=== PATIENT | male | born 1955 | race Caucasian/White ===

== ENCOUNTER → 2018-04-20 10:01 | Outpatient (CLI) | payer OTHER, MEDICAID, SELFPAY ==
[2018-04-20 10:22] LABS: Appearance Urine UA CLEAR; Bilirubin Urine UA NEGATIVE (NEGATIVE); Color Urine UA YELLOW; Glucose Urine UA NEGATIVE (Normal); Ketones Urine UA NEGATIVE (NEGATIVE); Leukocyte Esterase Urine UA NEGATIVE (NEGATIVE); Nitrite Urine UA Negative (Negative); Occult Blood Urine UA NEGATIVE (Negative); Protein Urine UA NEGATIVE (Negative); Specific Gravity Urine UA 1.025 (1.000-1.035); Urobilinogen Urine UA 0.2 E.U./dL (0.2)
[2018-04-20 10:50] LABS: Bacteria Urine Few (2-10); Culture Indicated Urine Cult Not Indicated; RBC Urine 0-1/HPF (0-5/HPF); Squamous Epithelial Cell Urine 0-1 /HPF; WBC Urine 1-5/HPF (0-5/HPF)
[2018-04-20 11:03] LABS: Add Manual Diff / Slide Review NO; Basophils Percent Auto 0.9 % (0-2); Eosinophils Percent Auto 2.2 % (2-4); Hematocrit 39.1 % (41-53); Hemoglobin 13.1 g/dL (13.5-17.5); Lymphocytes Percent Auto 24.2 % (25-40); Mean Corpuscular HGB Conc 33.5 % (30-36); Mean Corpuscular Hemoglobin 28.2 PG (26-34); Monocytes Percent Auto 10.5 % (3-14); Neutrophils Absolute Auto 3800 /uL (3000-5900); Neutrophils Percent Auto 62.2 % (50-75); Platelet Count 231 X10^3/uL (150-400); Red Blood Cell Count 4.66 X10^6/uL (4.5-5.9); Red Cell Distribution Width 14.8 % (11.6-14.8); White Blood Cell Count 6.1 X10^3/uL (4.5-11.0)
[2018-04-20 11:17] LABS: Hemoglobin A1C% w Est Avg Glu 5.5 % (4.0-6.0)
[2018-04-20 11:26] LABS: BUN Creatinine Ratio 27.5 (6-22); Blood Urea Nitrogen 22 mg/dL (9-20); Carbon Dioxide 25 mmol/L (22-32); Chloride 104 mmol/L (98-107); Estimated Glomerular Filt Rate > 60.0 mL/min (>60); Glucose 87 mg/dL (80-110); HEMOLYSIS < 15 (0-50); Sodium 139 mmol/L (137-145)
== END ==
PROVIDERS: PCP Emergency Medicine Emergency Medical Services; Visit Provider Orthopaedic Surgery
DX: Z01.818 Encounter for other preprocedural examination (principal); Z01.812 Encounter for preprocedural laboratory examination; N39.9 Disorder of urinary system, unspecified; R73.09 Other abnormal glucose
CPT/HCPCS: 36415; 80048; 81001; 83036; 85025; 93005; 93010

== ENCOUNTER → 2018-06-26 13:59 | Outpatient (CLI) | payer OTHER, MEDICAID, SELFPAY ==
[2018-06-26 14:09] LABS: Bacteria Urine None Seen; RBC Urine None Seen (0-5/HPF)
[2018-06-26 14:39] LABS: Add Manual Diff / Slide Review NO; Appearance Urine UA CLEAR; Basophils Percent Auto 0.8 % (0-2); Bilirubin Urine UA NEGATIVE (NEGATIVE); Color Urine UA YELLOW; Eosinophils Percent Auto 2.2 % (2-4); Glucose Urine UA NEGATIVE (Normal); Hematocrit 42.3 % (41-53); Hemoglobin 13.7 g/dL (13.5-17.5); Ketones Urine UA NEGATIVE (NEGATIVE); Leukocyte Esterase Urine UA TRACE (NEGATIVE); Mean Corpuscular HGB Conc 32.4 % (30-36); Mean Corpuscular Hemoglobin 27.2 PG (26-34); Mean Corpuscular Volume 83.9 fL (80-100); Monocytes Percent Auto 10.5 % (3-14); Neutrophils Absolute Auto 4000 /uL (3000-5900); Neutrophils Percent Auto 59.5 % (50-75); Nitrite Urine UA NEGATIVE (Negative); Occult Blood Urine UA NEGATIVE (Negative); Platelet Count 231 X10^3/uL (150-400); Protein Urine UA NEGATIVE (Negative); Red Blood Cell Count 5.04 X10^6/uL (4.5-5.9); Red Cell Distribution Width 14.5 % (11.6-14.8); Urobilinogen Urine UA 0.2 E.U./dL (0.2); White Blood Cell Count 6.7 X10^3/uL (4.5-11.0); pH Urine UA 6.5 (4.5-8.0)
[2018-06-26 14:47] LABS: WBC Urine 0-1/HPF (0-5/HPF)
[2018-06-26 14:48] LABS: Culture Indicated Urine Cult Not Indicated
[2018-06-26 14:54] LABS: BUN Creatinine Ratio 21.1 (6-22); Blood Urea Nitrogen 19 mg/dL (9-20); Calcium 8.9 mg/dL (8.4-10.2); Carbon Dioxide 26 mmol/L (22-32); Chloride 106 mmol/L (98-107); Estimated Glomerular Filt Rate > 60.0 mL/min (>60); Glucose 98 mg/dL (80-110); HEMOLYSIS < 15 (0-50); Hemoglobin A1C% w Est Avg Glu 5.7 % (4.0-6.0); Potassium 4.1 mmol/L (3.4-5.1); Sodium 143 mmol/L (137-145)
== END ==
PROVIDERS: PCP Emergency Medicine Emergency Medical Services; Visit Provider Orthopaedic Surgery
DX: Z01.818 Encounter for other preprocedural examination (principal); Z01.812 Encounter for preprocedural laboratory examination; N39.9 Disorder of urinary system, unspecified; R73.09 Other abnormal glucose
CPT/HCPCS: 36415; 80048; 81001; 83036; 85025; 93005

== ENCOUNTER 2018-07-11 08:08 | Inpatient (IN) | payer OTHER, MEDICAID, SELFPAY ==
[2018-07-04 10:47] VITALS: BMI 27.8
[2018-07-11] VITALS (12 sets, daily range): BP systolic 80–135; BP diastolic 57–94; PULSE 80–99; RESP 10–20; TEMP 36.3–37.1; O2SAT 90–98; BMI 27.8
--- NOTE | 2018-07-11 | DI.RAD.S_ITS ---
PROCEDURE: XR HIP W PEL IF DONE LT 2V INDICATIONS: TOTAL LEFT HIP TECHNIQUE: AP pelvis and lateral view of the left hip acquired. COMPARISON: [facility], CR, XR PELVIS WITH BILATERAL LATERAL HIPS, 04/18/2018, 8:13. [facility], CR, XR HIP W PEL IF DONE LT 2V, 07/11/2018, 11:48. FINDINGS: Bones: Patient is status post left hip arthroplasty, with hardware components in expected positions. The hip joint appears congruent. The visualized bony structures appear intact. Soft tissues: Overlying postoperative changes are noted. No suspicious soft tissue densities. IMPRESSION: Expected post surgical changes. Dictated by: Iva Duron M.D. on 07/11/2018 at 14:50 Approved by: Iva Duron M.D. on 07/11/2018 at 14:51
--- NOTE | 2018-07-11 08:43 | DI.RAD.S_ITS ---
PROCEDURE: XR HIP W PEL IF DONE LT 2V INDICATIONS: intra operative total left hip TECHNIQUE: 2 view(s) of the hip acquired. COMPARISON: [facility], CR, XR PELVIS WITH BILATERAL LATERAL HIPS, 04/18/2018, 8:13. FINDINGS: Intraoperative image obtained during the patient's left hip arthroplasty is present. A sizing device is seen within the proximal left femoral shaft. No displaced fractures or suspicious osseous lesions are evident. Expected postoperative changes within the overlying soft tissues are noted. IMPRESSION: Expected intraoperative findings related to left hip arthroplasty. Dictated by: Ming Hunt M.D. on 07/11/2018 at 12:21 Approved by: Ming Hunt M.D. on 07/11/2018 at 12:23
[2018-07-11] MEDS: LACTATED RINGERS 1,000 ML 42 ML IV ×2 (09:00→13:07)
[2018-07-11] MEDS: ACETAMINOPHEN 325 MG TABLET 975 MG PO ×2 (09:18→19:46)
[2018-07-11] MEDS: PREGABALIN 75 MG CAPSULE PO (09:19)
[2018-07-11] MEDS: CELECOXIB 200 MG CAPSULE PO (09:19)
[2018-07-11] MEDS: VANCOMYCIN 1,000 MG/200 ML FROZ.PIGGY 200 MG IV (10:02)
--- NOTE | 2018-07-11 10:44 | PM.PREOP ---
Pre-operative Note Interval Note Pre-op Check: Yes History & Physical Reviewed by Physician and Yes Exam Performed Changes: No
--- NOTE | 2018-07-11 10:48 | P.OP_ITS ---
Operative Date/Time/Diagnoses Date of procedure: 07/11/18 Time of procedure: 11:45 Pre-op diagnosis: Left hip osteoarthritis Post-op diagnosis: same Procedure & Clinicians Procedure: Left total hip arthroplasty Same procedure as scheduled: Yes Indications: The patient has had progressively worsening left hip pain with radiographic changes consistent with arthritis. Non-operative management has failed and the patient has requested total hip replacement. The risks, benefits and alternatives to surgery were discussed with the patient prior to proceeding. Risks discussed included, but were not limited to, failure to relieve pain, leg length discrepancy, dislocation, stiffness, infection, nerve damage, deep venous thrombosis, pulmonary embolism, stroke, coma, heart attack, permanent paralysis and , as well as the potential need for eventual revision of the prosthetic. Surgeon: Zonia Rutledge Trade Show Coordinator: Andreia Bergeron Anesthesia Type: General and Spinal Operative Notes Findings: Severe left hip osteoarthritis Closure Type: primary Specimen(s): none sent Implants & Drains: [employer]lde[employer]hew R3 58, anthology 11 standard offset, +0 40 neutral Applied: drain(s) Estimated Blood Loss (mL): 250 Blood products transfused: none Procedure in detail: The patient was seen in the pre-operative area, where the patient identified the left hip as the operative site and this was marked with my initials. The patient received pre-operative antibiotics and was taken to the operating room and placed on the operative table in the right lateral decubitus position after satisfactory anesthesia. A refinery operator vapor recovery unit out was performed. The left leg was prepared from the ankle to the iliac crest with ChloroPrep in the usual fashion and draped through sterile drapes. The hip was approached through an approximately 20 cm incision centered over the greater trochanter and curving gently posteriorly as it went proximally. This was carried sharply to the fascia marcelino, which was divided and retracted with a self retaining retractor. The trochanteric bursa was excised with care being taken to avoid the sciatic nerve, which was identified and protected throughout the case. The short external rotators were incised and the capsulomuscular flap was raised and tagged for later repair. The hip was dislocated, and a femoral neck osteotomy performed approximately 15 mm above the lesser trochanter. Retractors were placed around the femur. The canal was opened with a box cutting osteotome, followed by a T handled reamer and a lateralizing reamer. The chili pepper broach was then used, followed by sequential broaching until there was good stability of the broach in the femur. Retractors were placed to expose the acetabulum. The labrum and central soft tissues were removed. Reaming was performed initially going up in 2 mm increments, then 1 mm increments until good bite was obtained with an odd sized reamer. The cup 1 mm larger than the last reamer was then inserted using the appropriate anteversion guides. A trial neutral liner was placed. The broach was placed in the canal. A trial head and neck were then placed and the hip relocated and checked for leg length and stability. An intraoperative film confirmed the component position and no evidence of fracture. The patient was stable in the position of sleep, of squatting, and could be put through a range of motion with 45 degrees internal rotation without dislocation. At 90 degrees flexion, internal rotation to [60] was possible before dislocation. I also did a trial of -3 and attempted a trial of +4 which was too tight. Extended offset clearly appeared to be excessive and was not reducible. A standard offset was felt to be satisfactory and the appropriate components were opened, and the trials were removed. The acetabular liner was impacted into position. The final stem was then impacted into the prepared femoral canal. A brief Betadine soak was performed while trialing with head options. The hip was meticulously irrigated with normal saline. Finally the femoral head was impacted onto the stem. The acetabulum was cleared of all material and the hip relocated one final time. The capsulomuscular flap was then repaired to the greater trochanter though an awl hole using the tag sutures. The short external rotators were repaired with a black braided nylon. A deep drain was placed and brought out anteriorly. The fascia marcelino was closed with poly suture. The subcutaneous layer was closed with barbed sutures and SteriStrips. An Aquacel Ag dressing was applied and the patient was taken to recovery having tolerated the procedure well. Complications: none Condition: stable Disposition: Acute Care Plan for aftercare: The patient will be maintained on a standard total hip replacement protocol with weight bearing as tolerated and posterior hip precautions. The patient will receive Aspirin and sequential compression devices for DVT prophylaxis. The patient will be discharged home when safe for the home environment.
[2018-07-11] MEDS: CEFAZOLIN 2 GM/100 ML FROZ.PIGGY IV ×2 (11:06→19:21)
--- NOTE | 2018-07-11 11:46 | SUR.OPER ---
Lateral on padded OR bed. Gel axillary roll. Arms secured on padded armboard with pillow supporting top arm. Padded hip positioner braces x4 - anterior and posterior chest and pelvis. Additional gel pad used anterior pelvis. Gel pad under bottom leg from knee to foot and secured with tape over sheet.
[2018-07-11] MEDS: BUPIVACAINE 0.25% W/ EPI VIAL 50 ML INJ (11:56)
[2018-07-11] MEDS: BUPIVACAINE LIPOSOME 266 MG/20 ML VIAL INJ (11:56)
[2018-07-11] MEDS: TRANEXAMIC ACID 1,000 MG VIAL 1000 MG INJ ×2 (11:56→13:03)
[2018-07-11] MEDS: SODIUM CHLORIDE IRRIG SOLUTION 250 ML, EPINEPHrine 1 MG IRR (12:00)
[2018-07-11] MEDS: POVIDONE-IODINE 15 ML, SODIUM CHLORIDE 0.9% 250 ML TOP (12:02)
--- NOTE | 2018-07-11 12:19 | SUR.OPER ---
Pt had multiple scratches on the left lower extremity before the surgery
[2018-07-11] MEDS: LACTATED RINGERS 1,000 ML 125 ML IV (15:02)
--- NOTE | 2018-07-11 15:39 | PC.NURSE ---
1430 Pt arrived via bed from PACU, Pt Angelic [id number], at bedside. Hemovac to L hip, aquacel drsg to Left LORENZO site C,D,I. ice to site as well. ZULEMA Romo FA. Applied bilat SCDs. Pt has feeling to ble, but unable to complete ankle turns as yet. Pt taking in ice chips.
--- NOTE | 2018-07-11 17:30 | PC.NURSE ---
Addendum entered by Ivette Noel R.N. 07/11/18 22:46: Satisfactory post op course. Dsg CDI, IVF infusitn as per ordes w/o incidence. Med at HS w/flexeril w/good relief. Call light w/in reach, bed alarm on for pt safety. Continue w/plan of care. Original Note: Pt resting quietly, Denies any discomfort at this time. Dsg to Surgical ,left hip CDI. PT assisted to chair w/o incidence. IV LR @125cc/hr via pump infusing into left wrist w/o incidence. Call light w/in reach.
--- NOTE | 2018-07-11 17:37 | PT.IIE ---
Current Diagnoses Unilateral post-traumatic osteoarthritis, left hip (07/11/18) Surgery Performed Operation Date: 07/11/18 10:30 Actual Procedures p Total Hip Arthroplasty(Left) - Zonia Rutledge MD Surgical History (Last Updated 07/04/18 @ 11:01 by Joanne Guadalupe, RN) History of ankle surgery (Acute) Hx of appendectomy (Acute) Hx of arthroscopy of right knee (Acute) Hx of hand surgery (Acute ~2017) S/P cervical spinal fusion (Acute) S/P right unicompartmental knee replacement (Acute 02/05/15) Status post tendon repair (Acute) Medical History (Last Updated 07/04/18 @ 11:18 by Joanne Guadalupe RN) Arthritis (Acute) Asthma (Acute) Borderline hypothyroidism (Acute) COPD (chronic obstructive pulmonary disease) (Acute) Closed left radial fracture (Acute) Cocaine abuse in remission (Acute) Depression (Acute) Gout (Acute) History of ETOH abuse (Acute) Inflammatory bowel disease (Acute) PTSD (post-traumatic stress disorder) (Acute) Spinal stenosis (Acute) TIA (transient ischemic attack) (Acute ~2003) Physical Therapy Inpatient Evaluation/Re-Eval M1 PT/OT-IP Prior Functional Status Start: 07/11/18 17:20 Freq: NEEDED Status: Active Protocol: Document 07/11/18 17:21 EA (Rec: 07/11/18 17:37 EA [id number]) Medical Review Prior Functional Status Medical History Reviewed Yes Diet/Fluid Consistency Regular Communication Normal Mobility and Gait Able to ambulate 1/2 a block with the use of straight cane. Fell once in the past six months due to missed step on the curve with no severe injury Activities of Daily Living and IADL's Indep Social History Household Members spouse children Living Arrangements House Number of Floors (Floors) One Floor Number of Stairs To Enter/Railing? 3 steps to get in the main house with no rails Home Equipment Front Wheel Walker Straight Cane Raised Toilet Seat w/Armrests Employment Status Retired Additional Social History Comment Lives with his which is currently working; states son will come to replace if working. M2 PT-IP Current Condition Start: 07/11/18 17:20 Freq: NEEDED Status: Active Protocol: Document 07/11/18 17:21 EA (Rec: 07/11/18 17:37 EA [id number]) Physical Therapy Current Condition Current Condition Evaluation Date 07/11/18 Treatment Diagnosis s/p Left Total Hip Arthroplasty Onset Date 07/11/18 Precautions Posterior Hip Precautions No Hip Flexion > 90 degrees No Hip Internal Rotation No Hip Adduction Weight Bearing Status Weight Bearing Status Weight Bear as Tolerated M3 PT-IP Subjective Start: 07/11/18 17:20 Freq: NEEDED Status: Active Protocol: Document 07/11/18 17:21 EA (Rec: 07/11/18 17:37 EA [id number]) Subjective Physical Therapy Visit Type Type Initial Evaluation Visit Start Time 16:50 Visit Stop Time 17:30 Total Visit Minutes 40 Number of MEASURING MACHINE OPERATOR Visits 0 Physical Therapy Visit Comments Patient Comments Patient would like to have dinner in the chair; states would like to mobilize and transfer Therapy Pain Assessment Pain When Pain Assessed At Rest Pain Present Pain Present Pain Reported Location Left Hip Intensity 4 Description Acute M4 PT-IP Mobility and Gait Start: 07/11/18 17:20 Freq: NEEDED Status: Active Protocol: Document 07/11/18 17:21 EA (Rec: 07/11/18 17:37 EA [id number]) PT-Bed Mobility Assessment Supine to Sit Supine to Sit Contact Guard Assistance Sit to Supine Sit to Supine Standby Assistance Scooting Scooting to Edge of Bed Contact Guard Assistance PT-Transfer Assessment Sit to and From Stand Sit to and from Stand Contact Guard Assistance Equipment Transfer Assistive Device Gait Belt Front Wheeled Walker Orthotic/Prosthetic Devices or Brace: No Transfers Transfer Destination Bed Chair Bedside Commode Transfer Technique stepping transfers Transfer Ability Level of Assist Contact Guard Assistance Comments Mobility Comments requires cues to place weight to LLE Gait Assessment Gait Gait Assistance Required: Contact Guard Assist Distance (Feet) 6 Able to Maintain Weight Bearing Status No During Gait Assistive Devices Assistive Device Front Wheeled Walker Gait Deviations General Gait Pattern Antalgic Decreased Stride Length Step-to Gait Factors Limiting Gait Function Factors Limiting Gait Function Decreased Strength Pain Poor Balance Comments Gait Comments Requires cues with feet sequencing and weight bearing as patient scared to place weight. PT-Balance Assessment Sitting Balance and Reactions Static Sitting Balance Ability Good Dynamic Sitting Balance Ability Fair Standing Balance and Reactions Static Standing Balance Ability Good Dynamic Standing Balance Ability Fair Device Used FWW M5 PT-IP Objective Assessments Start: 07/11/18 17:20 Freq: NEEDED Status: Active Protocol: Document 07/11/18 17:21 EA (Rec: 11/13/18 17:37 EA [id number]) Orientation Orientation/Cognition Level of Alertness Alert Orientation Age Year Day of Week Place Language Function Ability No Deficits Noted Safety Awareness Understands Safety Issues Memory Description No Deficits Noted Gross Range of Motion Upper Extremity ROM Assessment Within Functional Limits Lower Extremity ROM Assessment Left Impaired Impairments N/A due to hip precautions but WFL for transfers and static position Strength Upper Extremity Strength Assessment Within Functional Limits Lower Extremity Strength Assessment Right Impaired Hip N/A but with at least 3/5 during spontaneous movement Coordination Assessment Gross Coordination Gross Coordination WNL Assessment Finger to Nose Test Normal Performance Foot Tapping Test Normal Performance Sensation Assessment Sensation Gross Sensation WNL Light Touch Intact Proprioception (Position) Intact M6 PT-IP Treatment Start: 07/11/18 17:20 Freq: NEEDED Status: Active Protocol: Document 07/11/18 17:21 EA (Rec: 07/11/18 17:37 EA [id number]) Physical Therapy Treatment Exercises Exercises Ankle Pumps Gluteal Sets Quad Sets Heel Slides Supine Hip Abduction Education Education Provided Weight Bearing Status Post-Op Packet Safety M7 PT-IP Assessment and Plan Start: 07/11/18 17:20 Freq: NEEDED Status: Active Protocol: Document 07/11/18 17:21 EA (Rec: 07/11/18 17:37 EA [id number]) PT Summary Assessment and Plan Potential Rehabilitation Potential Good Status of Condition at Evaluation Stable Summary Impairments Pain ROM Strength Balance Bed Mobility Transfers Gait Activity Tolerance Assessment Summary Patient demonstrates difficulty with transfers and mobility due to fair/poor standing dynamic balance with weakness and pain to left hip. Patient requires assistance for transfers at this time for safety. Patient would benefit with skilled PT to reach functional independence mobility goal prior to discharge. Patient demonstrates good potential for recovery. Goals Bed Mobility Goal Independent Transfer Goal Independent Gait Goal Independent Gait Distance 40 ft Other Goals 3 stairs with no rails support Days to Meet Goals 2 Frequency of Treatment Frequency Of Treatment Twice a Day Treatment Plan Physical Therapy Treatment Plan Bed Mobility Training Transfer Training Gait Training Therapeutic Exercise Balance Retraining Post Op Education Discharge Planning Hot or Cold Pack Other Recommendations and Next Treatment 3 stairs practice Focus Recommendations To Nursing Amount of Assist Needed 1 Person Assist Discharge Recommendations PT Discharge Recommendations Home with Assistance
[2018-07-11] MEDS: OXYCODONE IR 5 MG TABLET PO (17:48)
[2018-07-11] MEDS: TERAZOSIN 5 MG CAPSULE PO (19:46)
[2018-07-11] MEDS: ASPIRIN EC 81 MG TABLET PO (19:47)
[2018-07-11] MEDS: hydrOXYzine pamoate 25 MG CAPSULE PO (19:47)
[2018-07-11] MEDS: DOCUSATE 100 MG CAPSULE PO (19:47)
[2018-07-11] MEDS: TRAZODONE 50 MG TABLET PO (19:49)
[2018-07-11] MEDS: CYCLOBENZAPRINE 5 MG TABLET PO (21:28)
--- NOTE | 2018-07-11 21:49 | PC.NURSE ---
Addendum entered by Jemima Black 07/11/18 22:00: After bladder scan revealed 899mL, primary nurse Marge notified and received order to place Ken. Original Note: Student Nurse Note Patient complained of inability to void post-op. Bladder scan revealed 899mL of urine retained. Ken catheter placed at 1900, tolerated well. Patient stated he felt relieved after Ken placement and 900ml was obtained from catheter bag immediately after insertion.
[2018-07-12] MEDS: OXYCODONE IR 5 MG TABLET PO ×2 (00:17→03:17)
[2018-07-12] MEDS: LACTATED RINGERS 1,000 ML 125 ML IV (00:18)
[2018-07-12] MEDS: ZOLPIDEM 5 MG TABLET 10 MG PO (00:18)
[2018-07-12 00:20] VITALS: BP 124/81; PULSE 96; RESP 15; TEMP 36.7; O2SAT 95
[2018-07-12] MEDS: hydrOXYzine pamoate 25 MG CAPSULE PO ×2 (01:54→10:54)
[2018-07-12] MEDS: IBUPROFEN 600 MG TABLET PO (01:56)
[2018-07-12] MEDS: CEFAZOLIN 2 GM/100 ML FROZ.PIGGY IV (03:18)
[2018-07-12 03:20] VITALS: BP 140/83; PULSE 96; RESP 20; TEMP 36.7; O2SAT 95
[2018-07-12 03:50] VITALS: O2SAT 96
[2018-07-12] MEDS: HYDROMORPHONE 2 MG INJ 1 MG IV ×2 (04:19→14:36)
[2018-07-12 06:19] LABS: Hematocrit 33.8 % (41-53); Hemoglobin 11.2 g/dL (13.5-17.5)
[2018-07-12] MEDS: OXYCODONE IR 10 MG TABLET PO ×3 (06:21→19:47)
[2018-07-12] MEDS: diazePAM 5 MG TABLET PO (06:21)
--- NOTE | 2018-07-12 06:46 | PC.NURSE ---
Pt's pain was not well controlled with 5mg of oxycodone, rated pain 7-8/10, pt was grunting, shaking due to pain and cramp to his L.leg and back. notified research home economist doctor, SUMMERO for Dilaudid, valium and 10mg of oxycodone.
[2018-07-12 07:35] VITALS: BP 127/87; PULSE 90; RESP 18; TEMP 36.6; O2SAT 95
--- NOTE | 2018-07-12 07:48 | PM.PNPO.1 ---
Subjective Date Patient Seen: 07/12/18 Time Patient Seen: 07:49 Interval history: Patient states he had a rough night. Patient states he had a lot of pain and was not able to sleep well. Currently pain 7/10. Denies fever chills. No nausea vomiting. He was up able to use bedside commode. He does have a Ken catheter. Exam Vital Signs (past 8 hours): - 07/12/18 00:20 07/12/18 03:20 07/12/18 03:50 Temperature 98.1 F 98.0 F Pulse Rate 96 H 96 H Respiratory Rate 15 20 Blood Pressure 124/81 140/83 Pulse Oximetry 95 95 96 Oxygen Delivery Method Nasal Cannula Oxygen Flow Rate 0 Narrative Exam Narrative: 63-year-old male resting comfortably in bed in no apparent distress. Left hip dressing is clean, dry and intact. Neurovascular status is intact to the distal left lower extremity. Objective Labs Result Diagrams: 07/12/18 05:42 Labs: Laboratory Results - last 24 hr 07/12/18 05:42 Hgb 11.2 L Hct 33.8 L Assessment & Plan Post-op Postoperative Procedures Operation Date: 07/11/18 10:30 Actual Procedures Side Surgeon p Total Hip Arthroplasty Left Zonia Rutledge MD Mobilize with physical therapy. Will continue work on pain control. Possible discharge home later today or tomorrow.
[2018-07-12] MEDS: ACETAMINOPHEN 325 MG TABLET 975 MG PO ×3 (10:54→19:46)
[2018-07-12] MEDS: ASPIRIN EC 81 MG TABLET PO ×2 (10:55→19:46)
[2018-07-12] MEDS: DOCUSATE 100 MG CAPSULE PO ×2 (10:55→19:46)
[2018-07-12] MEDS: TAMSULOSIN 0.4 MG CAPSULE PO (10:55)
--- NOTE | 2018-07-12 11:56 | PT.IPTN ---
Current Diagnoses Unilateral post-traumatic osteoarthritis, left hip (07/11/18) Surgery Performed Operation Date: 07/11/18 10:30 Actual Procedures p Total Hip Arthroplasty(Left) - Zonia Rutledge MD Physical Therapy Treatment Note M2 PT-IP Current Condition Start: 07/11/18 17:20 Freq: NEEDED Status: Active Protocol: Document 07/11/18 17:21 EA (Rec: 07/11/18 17:37 EA [id number]) Physical Therapy Current Condition Current Condition Evaluation Date 07/11/18 Treatment Diagnosis s/p Left Total Hip Arthroplasty Onset Date 07/11/18 Precautions Posterior Hip Precautions No Hip Flexion > 90 degrees No Hip Internal Rotation No Hip Adduction Weight Bearing Status Weight Bearing Status Weight Bear as Tolerated M3 PT-IP Subjective Start: 07/11/18 17:20 Freq: NEEDED Status: Active Protocol: Document 07/12/18 11:39 SA (Rec: 07/12/18 11:56 SA [id number]) Subjective Physical Therapy Visit Type Type Treatment Note Visit Start Time 11:18 Visit Stop Time 11:37 Total Visit Minutes 19 Notes Pt sitting up in chair and agreeable to get up, although states he had a rough night with high pain levels in hip. Number of WATER TREATMENT PLANT MECHANIC Visits 1 Physical Therapy Visit Comments Patient Comments Pt recieved pain medication shortly before session, agreeable to ambulate. Therapy Pain Assessment Pain When Pain Assessed During Mobility Pain Present Pain Present Pain Reported Location Left Hip Intensity 5 Description Acute Pain Management Techniques Modification of Treatment Re-positioning Timing of Activity with Medications M4 PT-IP Mobility and Gait Start: 07/11/18 17:20 Freq: NEEDED Status: Active Protocol: Document 07/12/18 11:39 SA (Rec: 07/12/18 11:56 SA [id number]) PT-Transfer Assessment Sit to and From Stand Sit to and from Stand Contact Guard Assistance Equipment Transfer Assistive Device Gait Belt Front Wheeled Walker Orthotic/Prosthetic Devices or Brace: No Transfers Transfer Destination Chair Toilet Transfer Technique Stand Step Pivot Transfer Ability Level of Assist Contact Guard Assistance Comments Mobility Comments Very limited WBing through LLE with standing activity, cues for safe use of AD. Pt attempted to use 4WW but we changed to FWW as pt relies heavily on UEs for support. Pt agreed to stick with FWW as AD. Gait Assessment Gait Gait Assistance Required: Contact Guard Assist Distance (Feet) 15 Able to Maintain Weight Bearing Status Yes During Gait Assistive Devices Assistive Device Front Wheeled Walker Orthotic/Prosthetic Devices or Brace: No Gait Deviations General Gait Pattern Antalgic Decreased Stride Length Step-to Gait Factors Limiting Gait Function Factors Limiting Gait Function Decreased Activity Tolerance Decreased Strength Pain Poor Balance Poor Safety Awareness Comments Gait Comments Cues to increase WBing through LLE, upright posture and WBing through UEs. Stair Climbing Assessment Comments Stair Climbing Comments Plan to attempt stairs when pain is better managed. M5 PT-IP Objective Assessments Start: 07/11/18 17:20 Freq: NEEDED Status: Active Protocol: Document 07/11/18 17:21 EA (Rec: 07/11/18 17:37 EA [id number]) Orientation Orientation/Cognition Level of Alertness Alert Orientation Age Year Day of Week Place Language Function Ability No Deficits Noted Safety Awareness Understands Safety Issues Memory Description No Deficits Noted Gross Range of Motion Upper Extremity ROM Assessment Within Functional Limits Lower Extremity ROM Assessment Left Impaired Impairments N/A due to hip precautions but WFL for transfers and static position Strength Upper Extremity Strength Assessment Within Functional Limits Lower Extremity Strength Assessment Right Impaired Hip N/A but with at least 3/5 during spontaneous movement Coordination Assessment Gross Coordination Gross Coordination WNL Assessment Finger to Nose Test Normal Performance Foot Tapping Test Normal Performance Sensation Assessment Sensation Gross Sensation WNL Light Touch Intact Proprioception (Position) Intact M6 PT-IP Treatment Start: 07/11/18 17:20 Freq: NEEDED Status: Active Protocol: Document 07/12/18 11:39 SA (Rec: 07/12/18 11:56 SA [id number]) Physical Therapy Treatment Exercises Exercises Ankle Pumps Gluteal Sets Quad Sets Heel Slides Supine Hip Abduction Education Education Provided Weight Bearing Status Post-Op Packet Safety M7 PT-IP Assessment and Plan Start: 07/11/18 17:20 Freq: NEEDED Status: Active Protocol: Document 07/12/18 11:39 SA (Rec: 07/12/18 11:56 SA [id number]) PT Summary Assessment and Plan Potential Rehabilitation Potential Good Status of Condition at Evaluation Stable Summary Assessment Summary Limited WBing through LLE and pain limiting safe standing mobility tasks. Education on hip precautions and safe use of FWW. Frequency of Treatment Frequency Of Treatment Twice a Day Recommendations To Nursing Amount of Assist Needed 1 Person Assist
--- NOTE | 2018-07-12 13:12 | CM.DANOTE ---
Discharge Planning/Care Management CM Discharge Assessment Start: 07/12/18 13:10 Freq: Status: Active Protocol: Document 07/12/18 13:10 (Rec: 07/12/18 13:11 [id number]) Discharge Planning Assessment Assigned Transition Mgr Carolyn Fernández. MANAGING COGNITIVE ENGINEER Advance Directives? Yes Advance Directives on File No History Provided By Patient Medical Record Has Patient been admitted in last 30 No days? Prior Living Arrangements House Household Members spouse children Independent with ADL's Yes: with cane and 4WW Is patient alert and oriented? Yes Needs Assistance With Bathing Grooming Comment assist patient at time with showering and dressing. Caregiver for Another No DME Already Rented / Owned FWW / Walker Cane Patient/Family Preference OP PT Therapy Barriers to Discharge No Discharge Plan Home Community Services Physical Therapy Transportation Arrangement Spouse or Brother to provide transportation. Whiteboard Updated in Patient Room with Yes name and ext. # of Transition Mgr Review Status In Process Please Provide Date Initial DC 07/12/18 Assessment Was Performed Next Review Type Continued Stay Review Pre-Anesthesia Assessment Start: 06/20/18 12:54 Freq: Status: Active Protocol: Document 07/04/18 10:47 CAB (Rec: 07/04/18 11:16 CAB [id number]) Pre-Anesthesia Assessment Patient Also Known As Berrios (AKA) Patient Information Reviewed Via Phone Assessment Assessment Completed With Patient Lab Results BMP/CMP CBC EKG Urinalysis Other Comment A1c. Labs/EKG at 06/26/18 Primary Care Provider Sandoval Beaulieu Seen Specialist in Last 12 Months Yes Specialist Seen Orthopedist Primary Language Vietnamese Concrete Stone Fabricator Required No Height 177.8 cm Weight 87.997 kg Body Mass Index (BMI) 27.8 Hearing Ability Normal Visual Assist Glasses Dentition Type Full- Upper & Lower Barriers to Learning None Other Aids No Hx Anesthesia Reactions No Hx Family Anesthesia Reaction No Hx Malignant Hyperthermia No Hx Blood Transfusions No Anesthesia Review Requested No Esthetician Permanent Makeup Artist No alcohol intake current alcohol intake frequency 0-2 drinks per day Smoking Status Former smoker how long ago did patient quit smoking Quit 2013, smoked x 40-45 years/1.5 ppd Substance Use Type marijuana Comment History of ETOH/cocaine abuse. Advised not to smoke marijuana 24 hours prio Pain Present Pain Reported Musculoskeletal Symptoms Abnormal Gait Back Pain Difficulty Walking Joint Pain Neck Pain Numbness Tingling History of Falling (Recent or History of Yes ) Patient is completely paralyzed or No completely immobile Prosthesis or Orthotic Device Cane Mental Status Oriented to own ability Is patient on oxygen? No Does patient have BELCHER/SOB No Hx Sleep Apnea No Currently Taking a Beta [place] No Can You Climb a Flight of Stairs Without Yes: Maybe a little short SOB Hx Chest Pain No Hx SOB No Hx Syncope or Dizziness No Anti-Coagulant Therapy No Has a Forepart Rounder No Cardiac Testing No Hx Pacemaker/ICD No Pacemaker Rep Required? No Cardiac Clearance Received Not Applicable Diet Type At Home Regular dysphagia No Bladder Pattern Nocturia Urinary Catheter Present No Hx Urinary Self Catheterization No Diabetes No Hx Drug Resistant Organism No Presence of External or Internal Medical No Devices Have you traveled outside the [facility] in the last 30 days? Marital Status Lives With spouse children Prior Living Arrangements House Number of Floors (Floors) Two Floors Number of Stairs To Enter/Railing? 3 stairs, no railings, working on putting in Support System Child/Children Spouse Does the Patient Have Assistance After Yes Surgery Patient Discharge Plan Description Return Home Comment Pt not advised on length of stay per surgeon's office Feels Safe in Current Environment Yes Been Physically Hurt or Threatened By a No Person in Current Environment Do you have thoughts of harming yourself None or others? Are you currently considering suicide? No Do you have a plan to hurt yourself or No Plan others? Do You Have Any Spiritual Beliefs That No May Affect Your HC Choices? Do You Have Any Cultural Practices That No May Affect Your HC Choices? Spiritual Referral None Who Can We Speak to About Patient's Care Family, friends Identifying Code for Release of Patient Declines to issue Information Health Care Proxy/Next of Kin Micaela ()Brian (son) Health Care Proxy Phone Number [facility]: [phone] Brian: Pt to update dos Emergency Contact Name Micaela ()Brian (son) Emergency Contact Phone Number [facility]: [phone] Brian: Pt to update dos Advance Directives? Yes Advance Directives on File No Requested Patient Bring Advanced Yes Directives DOS Power of Informatics Nurse No PAC Instructions Durable medical equipment Medications to take/avoid Nasal antibiotic No ETOH/petroleum product on skin DOS NPO Post-op transportation Pre-surgical wash Sensory aids Sturdy shoes/comfortable clothes Do not bring valuables and remove jewelry
[2018-07-12] MEDS: CYCLOBENZAPRINE 5 MG TABLET PO (13:43)
--- NOTE | 2018-07-12 14:53 | PT.IPTN ---
Current Diagnoses Unilateral post-traumatic osteoarthritis, left hip (07/11/18) Surgery Performed Operation Date: 07/11/18 10:30 Actual Procedures p Total Hip Arthroplasty(Left) - Zonia Rutledge MD Physical Therapy Treatment Note M2 PT-IP Current Condition Start: 07/11/18 17:20 Freq: NEEDED Status: Active Protocol: Document 07/11/18 17:21 EA (Rec: 07/11/18 17:37 EA [id number]) Physical Therapy Current Condition Current Condition Evaluation Date 07/11/18 Treatment Diagnosis s/p Left Total Hip Arthroplasty Onset Date 07/11/18 Precautions Posterior Hip Precautions No Hip Flexion > 90 degrees No Hip Internal Rotation No Hip Adduction Weight Bearing Status Weight Bearing Status Weight Bear as Tolerated M3 PT-IP Subjective Start: 07/11/18 17:20 Freq: NEEDED Status: Active Protocol: Document 07/12/18 14:45 SA (Rec: 07/12/18 14:53 SA [id number]) Subjective Physical Therapy Visit Type Type Treatment Note Visit Start Time 14:15 Visit Stop Time 14:30 Total Visit Minutes 15 Notes Pt with increased pain this afternoon. Number of CAN LINE OPERATOR Visits 2 Physical Therapy Visit Comments Patient Comments Pt supine in bed with PLASTIC BOAT BUFFER attempting to get him comfortable. Pt rates his L hip pain as constant and with painfu spasm. Therapy Pain Assessment Pain When Pain Assessed At Rest Pain Present Pain Present Pain Reported Location Left Hip Intensity 6 Description Acute Pain Management Techniques Modification of Treatment Re-positioning Timing of Activity with Medications M4 PT-IP Mobility and Gait Start: 07/11/18 17:20 Freq: NEEDED Status: Active Protocol: Document 07/12/18 14:45 SA (Rec: 07/12/18 14:53 SA [id number]) PT-Bed Mobility Assessment Rolling Type of Rolling Roll to Left Level of Assist Contact Guard Assistance Scooting Scooting to Edge of Bed Contact Guard Assistance Scooting Up and Down in Bed Contact Guard Assistance PT-Transfer Assessment Comments Mobility Comments Pt declined getting OOB d/t pain. Nurse present to assess pain and medicate patient. Pt positioned with pillows, CP to hip and warm blanket and left fairly comfortable. M5 PT-IP Objective Assessments Start: 07/11/18 17:20 Freq: NEEDED Status: Active Protocol: Document 07/11/18 17:21 EA (Rec: 07/11/18 17:37 EA [id number]) Orientation Orientation/Cognition Level of Alertness Alert Orientation Age Year Day of Week Place Language Function Ability No Deficits Noted Safety Awareness Understands Safety Issues Memory Description No Deficits Noted Gross Range of Motion Upper Extremity ROM Assessment Within Functional Limits Lower Extremity ROM Assessment Left Impaired Impairments N/A due to hip precautions but WFL for transfers and static position Strength Upper Extremity Strength Assessment Within Functional Limits Lower Extremity Strength Assessment Right Impaired Hip N/A but with at least 3/5 during spontaneous movement Coordination Assessment Gross Coordination Gross Coordination WNL Assessment Finger to Nose Test Normal Performance Foot Tapping Test Normal Performance Sensation Assessment Sensation Gross Sensation WNL Light Touch Intact Proprioception (Position) Intact M6 PT-IP Treatment Start: 07/11/18 17:20 Freq: NEEDED Status: Active Protocol: Document 07/12/18 14:45 SA (Rec: 07/12/18 14:53 [id number]) Physical Therapy Treatment Exercises Exercises Ankle Pumps Gluteal Sets Quad Sets Heel Slides Education Education Provided Precautions Post-Op Packet Safety Other Treatments Other Treatment Performed Education for exercise technique and increased LE movement through out the day. Pt feels he may have spent to much time sitting up in chair without moving and this increased his pain. M7 PT-IP Assessment and Plan Start: 07/11/18 17:20 Freq: NEEDED Status: Active Protocol: Document 07/12/18 14:45 SA (Rec: 07/12/18 14:53 [id number]) PT Summary Assessment and Plan Frequency of Treatment Frequency Of Treatment Twice a Day Recommendations To Nursing Amount of Assist Needed 1 Person Assist Discharge Recommendations PT Discharge Recommendations Home with Assistance
[2018-07-12 15:24] VITALS: BP 126/82; PULSE 97; RESP 18; TEMP 36.7; O2SAT 94
[2018-07-12] MEDS: TRAZODONE 50 MG TABLET PO (19:46)
[2018-07-12] MEDS: TERAZOSIN 5 MG CAPSULE PO (19:46)
[2018-07-12 19:50] VITALS: BP 106/69; PULSE 85; RESP 18; TEMP 36.4; O2SAT 96
[2018-07-12] MEDS: SODIUM CHLORIDE 0.9% FLUSH 10 ML IV (22:11)
[2018-07-13] VITALS (9 sets, daily range): BP systolic 95–116; BP diastolic 63–78; PULSE 80–109; RESP 16–19; TEMP 36.6–36.8; O2SAT 95–97
[2018-07-13] MEDS: OXYCODONE IR 10 MG TABLET PO ×7 (00:36→21:53)
[2018-07-13] MEDS: hydrOXYzine pamoate 25 MG CAPSULE PO ×3 (00:39→20:44)
[2018-07-13] MEDS: diazePAM 5 MG TABLET PO (03:04)
--- NOTE | 2018-07-13 06:47 | PC.NURSE ---
munoz removed at 0648. urinal at bedside.
[2018-07-13] MEDS: IBUPROFEN 600 MG TABLET PO (06:49)
[2018-07-13] MEDS: TAMSULOSIN 0.4 MG CAPSULE PO (08:56)
[2018-07-13] MEDS: ASPIRIN EC 81 MG TABLET PO ×2 (08:57→20:45)
[2018-07-13] MEDS: ACETAMINOPHEN 325 MG TABLET 975 MG PO ×3 (08:57→20:45)
[2018-07-13] MEDS: DOCUSATE 100 MG CAPSULE PO ×2 (08:57→20:44)
[2018-07-13] MEDS: SODIUM CHLORIDE 0.9% FLUSH 10 ML IV ×2 (08:58→20:46)
[2018-07-13] MEDS: CYCLOBENZAPRINE 5 MG TABLET PO (08:59)
--- NOTE | 2018-07-13 09:40 | PM.PNPO.1 ---
Subjective Date Patient Seen: 07/13/18 Time Patient Seen: 09:41 Interval history: POD #2 Status post left total hip arthroplasty with Dr. Rutledge. Patient is having severe muscle spasms this morning. He does have a history of low back issues and sciatica. His symptoms are congruent with sciatica. Patient has tried gabapentin in the past but was started on too high of a dose too fast and he had confusion from it. Patient has no prior kidney issues, and preop labs are within normal limits for kidney function. Exam Vital Signs (past 8 hours): - 07/13/18 05:15 07/13/18 07:25 07/13/18 08:46 Temperature 98.2 F 98.2 F 98.2 F Pulse Rate 92 H 109 H Respiratory Rate 19 17 Blood Pressure 116/78 104/76 Pulse Oximetry 95 97 07/13/18 08:54 07/13/18 08:57 Temperature 98.2 F 98.2 F Pulse Rate Respiratory Rate Blood Pressure Pulse Oximetry Oxygen Delivery Method Nasal Cannula Oxygen Flow Rate 0 Narrative Exam Narrative: Patient lying in bed in no acute distress. He is alert and oriented x3. Dressing on left hip is CDI. Calves are soft, compressible, nontender bilaterally. Sensation intact to light touch throughout bilateral lower extremities. He is able to actively dorsiflex and plantar flex. Hemovac drain in place. Objective Labs Result Diagrams: 07/12/18 05:42 Assessment & Plan Post-op (1) S/P total hip arthroplasty: Current Visit: Yes Status: Acute Postoperative Procedures Operation Date: 07/11/18 10:30 Actual Procedures Side Surgeon p Total Hip Arthroplasty Left Zonia Rutledge MD POD #2 Status post left total hip arthroplasty with Dr. Rutledge. Patient is started on 1 time dose of Toradol 15 mg. Gabapentin is started 100 mg t.i.d., and can be titrated up at home. Instructions on how to titrate were discussed with patient and he is aware he can titrate up to 300 mg t.i.d.. his primary care has already sent a prescription for gabapentin to his pharmacy. Patient will continue to mobilize with physical therapy. If patient's pain is still significant may need to consider starting Dilaudid p.o.. Patient will likely DC once pain is adequately controlled either today or tomorrow, and mobilizing safely prior to discharge.
[2018-07-13] MEDS: KETOROLAC 15 MG/ML VIAL IV (10:40)
[2018-07-13] MEDS: GABAPENTIN 100 MG CAPSULE PO ×3 (10:40→20:45)
[2018-07-13] MEDS: DEXAMETHASONE 4 MG/ML VIAL IV (12:04)
--- NOTE | 2018-07-13 13:50 | PT.IPTN ---
Current Diagnoses Unilateral post-traumatic osteoarthritis, left hip (07/11/18) Presence of unspecified artificial hip joint (07/11/18) Surgery Performed Operation Date: 07/11/18 10:30 Actual Procedures p Total Hip Arthroplasty(Left) - Zonia Rutledge MD Physical Therapy Treatment Note M2 PT-IP Current Condition Start: 07/11/18 17:20 Freq: NEEDED Status: Active Protocol: Document 07/11/18 17:21 EA (Rec: 07/11/18 17:37 EA [id number]) Physical Therapy Current Condition Current Condition Evaluation Date 07/11/18 Treatment Diagnosis s/p Left Total Hip Arthroplasty Onset Date 07/11/18 Precautions Posterior Hip Precautions No Hip Flexion > 90 degrees No Hip Internal Rotation No Hip Adduction Weight Bearing Status Weight Bearing Status Weight Bear as Tolerated M3 PT-IP Subjective Start: 07/11/18 17:20 Freq: NEEDED Status: Active Protocol: Document 07/13/18 13:36 SA (Rec: 07/13/18 13:50 SA [id number]) Subjective Physical Therapy Visit Type Type Treatment Note Visit Start Time 10:45 Visit Stop Time 11:05 Total Visit Minutes 20 Notes Pt supine in bed but agreeable to get up with PT. Number of FRENCH PASTRY COOK Visits 3 Physical Therapy Visit Comments Patient Comments Pt hip pain managed better today, new order for Gabapentin as PA thinks he may be suffering with sciatic pain/sx. Patient Goals to try stairs this afternoon. Therapy Pain Assessment Pain When Pain Assessed During Mobility Pain Present Pain Present Pain Reported Location Left Hip Intensity 5 Description Cramping Shooting Pain Management Techniques Modification of Treatment Re-positioning Timing of Activity with Medications M4 PT-IP Mobility and Gait Start: 07/11/18 17:20 Freq: NEEDED Status: Active Protocol: Document 07/13/18 13:36 SA (Rec: 07/13/18 13:50 SA [id number]) PT-Bed Mobility Assessment Rolling Type of Rolling Roll to Left Level of Assist Contact Guard Assistance Scooting Scooting to Edge of Bed Standby Assistance Scooting Up and Down in Bed Standby Assistance PT-Transfer Assessment Sit to and From Stand Sit to and from Stand Contact Guard Assistance Equipment Transfer Assistive Device Gait Belt Front Wheeled Walker Orthotic/Prosthetic Devices or Brace: No Transfers Transfer Destination Chair Toilet Transfer Technique Stand Step Pivot Transfer Ability Level of Assist Contact Guard Assistance Comments Mobility Comments Pt completed transfer to/from toilet with FWW and SBA. Mod cues for hip precations with mobility tasks. Gait Assessment Gait Gait Assistance Required: Contact Guard Assist Distance (Feet) 60 Able to Maintain Weight Bearing Status Yes During Gait Assistive Devices Assistive Device Front Wheeled Walker Orthotic/Prosthetic Devices or Brace: No Gait Deviations General Gait Pattern Antalgic Decreased Stride Length Step-to Gait Factors Limiting Gait Function Factors Limiting Gait Function Decreased Activity Tolerance Decreased Strength Pain Poor Balance Poor Safety Awareness Comments Gait Comments Pt with increased gait distance but continues to WB heavily through UEs and limit LLE WBing. M5 PT-IP Objective Assessments Start: 07/11/18 17:20 Freq: NEEDED Status: Active Protocol: Document 07/11/18 17:21 EA (Rec: 07/11/18 17:37 EA [id number]) Orientation Orientation/Cognition Level of Alertness Alert Orientation Age Year Day of Week Place Language Function Ability No Deficits Noted Safety Awareness Understands Safety Issues Memory Description No Deficits Noted Gross Range of Motion Upper Extremity ROM Assessment Within Functional Limits Lower Extremity ROM Assessment Left Impaired Impairments N/A due to hip precautions but WFL for transfers and static position Strength Upper Extremity Strength Assessment Within Functional Limits Lower Extremity Strength Assessment Right Impaired Hip N/A but with at least 3/5 during spontaneous movement Coordination Assessment Gross Coordination Gross Coordination WNL Assessment Finger to Nose Test Normal Performance Foot Tapping Test Normal Performance Sensation Assessment Sensation Gross Sensation WNL Light Touch Intact Proprioception (Position) Intact M6 PT-IP Treatment Start: 07/11/18 17:20 Freq: NEEDED Status: Active Protocol: Document 07/13/18 13:36 SA (Rec: 07/13/18 13:50 SA [id number]) Physical Therapy Treatment Exercises Exercises Ankle Pumps Gluteal Sets Quad Sets Heel Slides Education Education Provided Precautions Post-Op Packet Safety Other Treatments Other Treatment Performed Continued education to move every hour as pt tends to find a comfortable position and stay there, then is very painful when he does move. M7 PT-IP Assessment and Plan Start: 07/11/18 17:20 Freq: NEEDED Status: Active Protocol: Document 07/13/18 13:36 SA (Rec: 07/13/18 13:50 SA [id number]) PT Summary Assessment and Plan Summary Assessment Summary Attempt stair training but pt presents with limited unilateral stance on LLE. Frequency of Treatment Frequency Of Treatment Twice a Day Recommendations To Nursing Amount of Assist Needed 1 Person Assist Discharge Recommendations PT Discharge Recommendations Home with Assistance
--- NOTE | 2018-07-13 15:53 | PT.IPTN ---
Current Diagnoses Unilateral post-traumatic osteoarthritis, left hip (07/11/18) Presence of unspecified artificial hip joint (07/11/18) Surgery Performed Operation Date: 07/11/18 10:30 Actual Procedures p Total Hip Arthroplasty(Left) - Zonia Rutledge MD Physical Therapy Treatment Note M2 PT-IP Current Condition Start: 07/11/18 17:20 Freq: NEEDED Status: Active Protocol: Document 07/11/18 17:21 EA (Rec: 07/11/18 17:37 EA [id number]) Physical Therapy Current Condition Current Condition Evaluation Date 07/11/18 Treatment Diagnosis s/p Left Total Hip Arthroplasty Onset Date 07/11/18 Precautions Posterior Hip Precautions No Hip Flexion > 90 degrees No Hip Internal Rotation No Hip Adduction Weight Bearing Status Weight Bearing Status Weight Bear as Tolerated M3 PT-IP Subjective Start: 07/11/18 17:20 Freq: NEEDED Status: Active Protocol: Document 07/13/18 15:43 SA (Rec: 07/13/18 15:53 SA [id number]) Subjective Physical Therapy Visit Type Type Treatment Note Visit Start Time 15:19 Visit Stop Time 15:40 Total Visit Minutes 21 Notes Pt supine and willing to get OOB for therapy. Number of SALES AND SERVICE TECHNICIAN Visits 4 Physical Therapy Visit Comments Patient Comments Pt feels hip pain is better. Therapy Pain Assessment Pain When Pain Assessed During Mobility Pain Present Pain Present Pain Reported Location Left Hip Intensity 4 Description Cramping Shooting Pain Management Techniques Modification of Treatment Re-positioning Timing of Activity with Medications M4 PT-IP Mobility and Gait Start: 07/11/18 17:20 Freq: NEEDED Status: Active Protocol: Document 07/13/18 15:43 SA (Rec: 07/13/18 15:53 SA [id number]) PT-Bed Mobility Assessment Rolling Type of Rolling Roll to Left Level of Assist Contact Guard Assistance Supine to Sit Supine to Sit Contact Guard Assistance Scooting Scooting to Edge of Bed Standby Assistance Scooting Up and Down in Bed Standby Assistance PT-Transfer Assessment Sit to and From Stand Sit to and from Stand Contact Guard Assistance Equipment Transfer Assistive Device Gait Belt Front Wheeled Walker Orthotic/Prosthetic Devices or Brace: No Transfers Transfer Destination Bed Chair Transfer Technique Stand Step Pivot Transfer Ability Level of Assist Contact Guard Assistance Comments Mobility Comments Pt demonstates decresed pain with bed mobility today. Stand pivot txs with CGA and min cues for safety. Gait Assessment Gait Gait Assistance Required: Contact Guard Assist Distance (Feet) 65 Able to Maintain Weight Bearing Status Yes During Gait Assistive Devices Assistive Device Front Wheeled Walker Orthotic/Prosthetic Devices or Brace: No Gait Deviations General Gait Pattern Antalgic Decreased Stride Length Step-to Gait Factors Limiting Gait Function Factors Limiting Gait Function Decreased Activity Tolerance Decreased Strength Pain Poor Balance Poor Safety Awareness Comments Gait Comments Pt began getting dizzy and seeing spots about half way through walk. Vitals: BP 115/ 75, HR 91 and 02 96%. Pt declined stairs at this time. Stair Climbing Assessment Comments Stair Climbing Comments Headed to attempt stairs when pt became dizzy and light headed. Cues for slowing pace and PLB to complete walk to chair safely. M5 PT-IP Objective Assessments Start: 07/11/18 17:20 Freq: NEEDED Status: Active Protocol: Document 07/11/18 17:21 EA (Rec: 07/11/18 17:37 EA [id number]) Orientation Orientation/Cognition Level of Alertness Alert Orientation Age Year Day of Week Place Language Function Ability No Deficits Noted Safety Awareness Understands Safety Issues Memory Description No Deficits Noted Gross Range of Motion Upper Extremity ROM Assessment Within Functional Limits Lower Extremity ROM Assessment Left Impaired Impairments N/A due to hip precautions but WFL for transfers and static position Strength Upper Extremity Strength Assessment Within Functional Limits Lower Extremity Strength Assessment Right Impaired Hip N/A but with at least 3/5 during spontaneous movement Coordination Assessment Gross Coordination Gross Coordination WNL Assessment Finger to Nose Test Normal Performance Foot Tapping Test Normal Performance Sensation Assessment Sensation Gross Sensation WNL Light Touch Intact Proprioception (Position) Intact M6 PT-IP Treatment Start: 07/11/18 17:20 Freq: NEEDED Status: Active Protocol: Document 07/13/18 15:43 SA (Rec: 07/13/18 15:53 [id number]) Physical Therapy Treatment Exercises Exercises Ankle Pumps Gluteal Sets Quad Sets Heel Slides Education Education Provided Precautions Post-Op Packet Safety Other Treatments Other Treatment Performed NSG present at end of session, incident of dizziness noted. M7 PT-IP Assessment and Plan Start: 07/11/18 17:20 Freq: NEEDED Status: Active Protocol: Document 07/13/18 15:43 SA (Rec: 07/13/18 15:53 [id number]) PT Summary Assessment and Plan Summary Assessment Summary Pt unable to attempt stairs this afternoon as he became symptomatic with short distance gait training. 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 Discussed possible d/c to SNF or getting more help at home if he isn't able to progress with mobility training and activity tolerance.
[2018-07-13] MEDS: TRAZODONE 50 MG TABLET PO (20:46)
[2018-07-13] MEDS: TERAZOSIN 5 MG CAPSULE PO (20:46)
[2018-07-14] VITALS (10 sets, daily range): BP systolic 103–140; BP diastolic 41–110; PULSE 85–111; RESP 16–20; TEMP 36.4–36.9; O2SAT 95–98
[2018-07-14] MEDS: hydrOXYzine pamoate 25 MG CAPSULE PO ×3 (01:04→20:09)
[2018-07-14] MEDS: OXYCODONE IR 10 MG TABLET PO ×5 (01:04→20:08)
[2018-07-14] MEDS: SODIUM CHLORIDE 0.9% 500 ML IV (07:40)
[2018-07-14] MEDS: DOCUSATE 100 MG CAPSULE PO ×2 (08:35→20:08)
[2018-07-14] MEDS: TAMSULOSIN 0.4 MG CAPSULE PO (08:35)
[2018-07-14] MEDS: POLYETHYLENE GLYCOL 3350 17 GM POWD.PACK PO (08:35)
[2018-07-14] MEDS: GABAPENTIN 100 MG CAPSULE PO ×3 (08:35→20:08)
[2018-07-14] MEDS: ACETAMINOPHEN 325 MG TABLET 975 MG PO ×3 (08:35→20:08)
[2018-07-14] MEDS: ASPIRIN EC 81 MG TABLET PO ×2 (08:36→20:08)
--- NOTE | 2018-07-14 09:19 | PM.PNPO.1 ---
Subjective Date Patient Seen: 07/14/18 Time Patient Seen: 09:19 Interval history: Patient is postop day 3. Status post left total hip arthroplasty by Dr. Rutledge. States that the muscle spasms sciatica are a lot better this a.m. he was started on gabapentin yesterday. Issues today is orthostatic hypotension. Has not been drinking very much. He has been getting lightheaded when getting up and walking. Once he supine his blood pressures returned to normal. Plan is for to be discharged home when medically stable. Is ambulating well when he is not feeling lightheaded. Exam Vital Signs (past 8 hours): - 07/14/18 05:01 Temperature 98.3 F Pulse Rate 98 H Respiratory Rate 20 Blood Pressure 114/81 Pulse Oximetry 95 Oxygen Delivery Method Room Air Oxygen Flow Rate 0 Narrative Exam Narrative: Left hip Aquacel dressing clean dry and intact. Some swelling in the left anterior thigh. Bilateral calves soft and nontender. 5/5 left ankle strength. Quad strength good. Sciatic pain with left leg lift. Distal pulses palpable. Objective Labs Result Diagrams: 07/12/18 05:42 Assessment & Plan Post-op Postoperative Procedures Operation Date: 07/11/18 10:30 Actual Procedures Side Surgeon p Total Hip Arthroplasty Left Zonia Angelic Rutledge MD Postop day 3. NS fluid bolus 500ml. Continue pain medication as needed. Continue gabapentin for sciatica. Continue physical therapy. Anticipate discharge home tomorrow.
--- NOTE | 2018-07-14 09:25 | PT.IPTN ---
Current Diagnoses Unilateral post-traumatic osteoarthritis, left hip (07/11/18) Presence of unspecified artificial hip joint (07/11/18) Surgery Performed Operation Date: 07/11/18 10:30 Actual Procedures p Total Hip Arthroplasty(Left) - Zonia Rutledge MD Physical Therapy Treatment Note M2 PT-IP Current Condition Start: 07/11/18 17:20 Freq: NEEDED Status: Active Protocol: Document 07/11/18 17:21 EA (Rec: 07/11/18 17:37 EA [id number]) Physical Therapy Current Condition Current Condition Evaluation Date 07/11/18 Treatment Diagnosis s/p Left Total Hip Arthroplasty Onset Date 07/11/18 Precautions Posterior Hip Precautions No Hip Flexion > 90 degrees No Hip Internal Rotation No Hip Adduction Weight Bearing Status Weight Bearing Status Weight Bear as Tolerated M3 PT-IP Subjective Start: 07/11/18 17:20 Freq: NEEDED Status: Active Protocol: Document 07/14/18 09:25 GGD (Rec: 07/14/18 12:15 GGD [id number]) Subjective Physical Therapy Visit Type Type Treatment Note Visit Start Time 09:00 Visit Stop Time 09:25 Total Visit Minutes 25 Notes Pt states he is willing to work with PT. Physical Therapy Visit Comments Patient Comments Pt states he is haivng pain down his leg. Therapy Pain Assessment Pain When Pain Assessed During Mobility Pain Present Pain Present Pain Reported Location Left Hip Intensity 3 Scale Used Numeric (1 - 10) Description Cramping Shooting Pain Management Techniques Modification of Treatment Re-positioning Timing of Activity with Medications M4 PT-IP Mobility and Gait Start: 07/11/18 17:20 Freq: NEEDED Status: Active Protocol: Document 07/14/18 09:25 GGD (Rec: 07/14/18 12:15 GGD [id number]) PT-Transfer Assessment Sit to and From Stand Sit to and from Stand Contact Guard Assistance Equipment Transfer Assistive Device Gait Belt Front Wheeled Walker Orthotic/Prosthetic Devices or Brace: No Transfers Transfer Destination Bed Chair Transfer Ability Level of Assist Contact Guard Assistance Gait Assessment Gait Gait Assistance Required: Contact Guard Assist Distance (Feet) 50 Able to Maintain Weight Bearing Status Yes During Gait Assistive Devices Assistive Device Front Wheeled Walker Orthotic/Prosthetic Devices or Brace: No Gait Deviations General Gait Pattern Antalgic Decreased Stride Length Step-to Gait Factors Limiting Gait Function Factors Limiting Gait Function Decreased Activity Tolerance Decreased Strength Pain Poor Balance Poor Safety Awareness Comments Gait Comments No C/O dizziness. 140/110 after activity. M5 PT-IP Objective Assessments Start: 07/11/18 17:20 Freq: NEEDED Status: Active Protocol: Document 07/11/18 17:21 EA (Rec: 07/11/18 17:37 EA [id number]) Orientation Orientation/Cognition Level of Alertness Alert Orientation Age Year Day of Week Place Language Function Ability No Deficits Noted Safety Awareness Understands Safety Issues Memory Description No Deficits Noted Gross Range of Motion Upper Extremity ROM Assessment Within Functional Limits Lower Extremity ROM Assessment Left Impaired Impairments N/A due to hip precautions but WFL for transfers and static position Strength Upper Extremity Strength Assessment Within Functional Limits Lower Extremity Strength Assessment Right Impaired Hip N/A but with at least 3/5 during spontaneous movement Coordination Assessment Gross Coordination Gross Coordination WNL Assessment Finger to Nose Test Normal Performance Foot Tapping Test Normal Performance Sensation Assessment Sensation Gross Sensation WNL Light Touch Intact Proprioception (Position) Intact M6 PT-IP Treatment Start: 07/11/18 17:20 Freq: NEEDED Status: Active Protocol: Document 07/14/18 09:25 GGD (Rec: 07/14/18 12:15 GGD [id number]) Physical Therapy Treatment Exercises Exercises Ankle Pumps Gluteal Sets Quad Sets Heel Slides Education Education Provided Precautions Safety M7 PT-IP Assessment and Plan Start: 07/11/18 17:20 Freq: NEEDED Status: Active Protocol: Document 07/14/18 09:25 GGD (Rec: 07/14/18 12:15 GGD [id number]) PT Summary Assessment and Plan Summary Assessment Summary Pt had less pain with mobility , but did have increase pain in chair and with knee extension in bed. He was stable with gait with FWW. Frequency of Treatment Frequency Of Treatment Twice a Day Treatment Plan Other Recommendations and Next Treatment stair mobility and gait. Focus Recommendations To Nursing Amount of Assist Needed 1 Person Assist Discharge Recommendations PT Discharge Recommendations Home with Assistance
--- NOTE | 2018-07-14 09:51 | PC.NURSE ---
ORTHOSTATIC VS OBTAINED THIS AM AT 0725. SUPINE 103/60 HR 97, SITTING 107/68 HR 111, STANDING 105/41 HR 106. INITIALLY ASYMPTOMATIC BUT AFTER TAKING TEN STEPS BECAME DIZZY AND FELT IS VISION CLOUDING OVER. ASSISTED TO RECLINE IN CHAIR W/ SEMI-RECUMBANT POSITION 115/76 HR 96. ORTHO PA ARRIVED AT THAT TIME AND WAS NOTIFIED. PUSHED PO FLUIDS AND GIVEN 500 NS BOLUS. LATER AMBULATED W/ PHYSICAL THERAPY, ASYMPTOMATIC AND ACTUALLY HYPERTENSIVE AFTER ACTIVITY. PATIENT CURRENTLY SLEEPING. STATES HAS GOOD PAIN CONTROL. HELD VISTARIL IN LIGHT OF LOW PRESSURES THIS AM.
[2018-07-14] MEDS: IBUPROFEN 600 MG TABLET PO (11:44)
[2018-07-14] MEDS: SODIUM CHLORIDE 0.9% FLUSH 10 ML IV ×2 (11:44→20:09)
--- NOTE | 2018-07-14 14:33 | PT.IPTN ---
Current Diagnoses Unilateral post-traumatic osteoarthritis, left hip (07/11/18) Presence of unspecified artificial hip joint (07/11/18) Surgery Performed Operation Date: 07/11/18 10:30 Actual Procedures p Total Hip Arthroplasty(Left) - Zonia Rutledge MD Physical Therapy Treatment Note M2 PT-IP Current Condition Start: 07/11/18 17:20 Freq: NEEDED Status: Active Protocol: Document 07/11/18 17:21 EA (Rec: 07/11/18 17:37 EA [id number]) Physical Therapy Current Condition Current Condition Evaluation Date 07/11/18 Treatment Diagnosis s/p Left Total Hip Arthroplasty Onset Date 07/11/18 Precautions Posterior Hip Precautions No Hip Flexion > 90 degrees No Hip Internal Rotation No Hip Adduction Weight Bearing Status Weight Bearing Status Weight Bear as Tolerated M3 PT-IP Subjective Start: 07/11/18 17:20 Freq: NEEDED Status: Active Protocol: Document 07/14/18 14:30 GGD (Rec: 07/14/18 15:33 GGD [id number]) Subjective Physical Therapy Visit Type Type Treatment Note Visit Start Time 14:00 Visit Stop Time 14:30 Total Visit Minutes 30 Number of SALES COORDINATOR Visits 6 Physical Therapy Visit Comments Patient Comments Pt states he is feeling better . Therapy Pain Assessment Pain When Pain Assessed During Mobility Pain Present Pain Present Pain Reported Location Left Hip Intensity 2 Scale Used Numeric (1 - 10) M4 PT-IP Mobility and Gait Start: 07/11/18 17:20 Freq: NEEDED Status: Active Protocol: Document 07/14/18 14:30 GGD (Rec: 07/14/18 15:33 GGD [id number]) PT-Bed Mobility Assessment Supine to Sit Supine to Sit Contact Guard Assistance Sit to Supine Sit to Supine Contact Guard Assistance Scooting Scooting to Edge of Bed Standby Assistance Scooting Up and Down in Bed Standby Assistance PT-Transfer Assessment Sit to and From Stand Sit to and from Stand Contact Guard Assistance Equipment Transfer Assistive Device Gait Belt Front Wheeled Walker Orthotic/Prosthetic Devices or Brace: No Transfers Transfer Destination Bed Transfer Ability Level of Assist Contact Guard Assistance Gait Assessment Gait Gait Assistance Required: Contact Guard Assist Distance (Feet) 180 Able to Maintain Weight Bearing Status Yes During Gait Assistive Devices Assistive Device Front Wheeled Walker Orthotic/Prosthetic Devices or Brace: No Gait Deviations General Gait Pattern Antalgic Decreased Stride Length Step-to Gait Factors Limiting Gait Function Factors Limiting Gait Function Decreased Activity Tolerance Decreased Strength Pain Poor Balance Poor Safety Awareness Stair Climbing Assessment Evaluation Level of Assist On Stairs Contact Guard Assistance Devices Stair Climbing Assistive Devices Right Railing Technique/Endurance Stair Climbing Direction Ascend and Descend Stair Climbing Technique Step to Step Number of Steps Climbed 3 Query Text: Stair Climbing Set # Repetitions (reps) 1 M5 PT-IP Objective Assessments Start: 07/11/18 17:20 Freq: NEEDED Status: Active Protocol: Document 07/11/18 17:21 EA (Rec: 07/11/18 17:37 EA [id number]) Orientation Orientation/Cognition Level of Alertness Alert Orientation Age Year Day of Week Place Language Function Ability No Deficits Noted Safety Awareness Understands Safety Issues Memory Description No Deficits Noted Gross Range of Motion Upper Extremity ROM Assessment Within Functional Limits Lower Extremity ROM Assessment Left Impaired Impairments N/A due to hip precautions but WFL for transfers and static position Strength Upper Extremity Strength Assessment Within Functional Limits Lower Extremity Strength Assessment Right Impaired Hip N/A but with at least 3/5 during spontaneous movement Coordination Assessment Gross Coordination Gross Coordination WNL Assessment Finger to Nose Test Normal Performance Foot Tapping Test Normal Performance Sensation Assessment Sensation Gross Sensation WNL Light Touch Intact Proprioception (Position) Intact M6 PT-IP Treatment Start: 07/11/18 17:20 Freq: NEEDED Status: Active Protocol: Document 07/14/18 14:30 GGD (Rec: 07/14/18 15:33 GGD [id number]) Physical Therapy Treatment Exercises Exercises Ankle Pumps Gluteal Sets Quad Sets Education Education Provided Precautions M7 PT-IP Assessment and Plan Start: 07/11/18 17:20 Freq: NEEDED Status: Active Protocol: Document 07/14/18 14:30 GGD (Rec: 07/14/18 15:33 GGD [id number]) PT Summary Assessment and Plan Summary Assessment Summary Pt improved with mobility and gait. He was safe and stable with gait and stairs. He had less shooting pain with mobility. He safe for D/C to home when medically stable. Goals Bed Mobility Goal Independent Transfer Goal Independent Gait Goal Independent Gait Distance 40 ft Other Goals 3 stairs with no rails support Days to Meet Goals 2 Frequency of Treatment Frequency Of Treatment Twice a Day Treatment Plan Physical Therapy Treatment Plan Bed Mobility Training Transfer Training Gait Training Therapeutic Exercise Balance Retraining Post Op Education Discharge Planning Hot or Cold Pack Other Recommendations and Next Treatment stair mobility and gait. Focus Recommendations To Nursing Amount of Assist Needed 1 Person Assist Discharge Recommendations PT Discharge Recommendations Home with Assistance
[2018-07-14] MEDS: CYCLOBENZAPRINE 5 MG TABLET PO (14:38)
[2018-07-14] MEDS: TRAZODONE 50 MG TABLET PO (20:10)
[2018-07-14] MEDS: TERAZOSIN 5 MG CAPSULE PO (20:10)
[2018-07-15 00:20] VITALS: BP 116/75; PULSE 87; RESP 16; TEMP 36.9; O2SAT 94
[2018-07-15] MEDS: hydrOXYzine pamoate 25 MG CAPSULE PO ×2 (01:16→08:31)
[2018-07-15] MEDS: OXYCODONE IR 10 MG TABLET PO ×4 (01:16→11:19)
[2018-07-15 04:00] VITALS: BP 127/77; PULSE 77; RESP 18; TEMP 36.7; O2SAT 96
[2018-07-15] MEDS: diazePAM 5 MG TABLET PO (04:08)
--- NOTE | 2018-07-15 04:18 | PC.NURSE ---
0400 pt awoke w/incr'd muscle spasms and l leg cramping, rated pain 7/10. pt tried standing at bedside w/walker, then sitting in recliner w/no relief. settled back into bed, fresh ice pack applied, medicated w/10mg oxycodone and 5mg of po valium.
[2018-07-15 07:45] VITALS: BP 126/78; PULSE 95; RESP 12; TEMP 36.9; O2SAT 99
[2018-07-15] MEDS: ACETAMINOPHEN 325 MG TABLET 975 MG PO (08:34)
[2018-07-15] MEDS: DOCUSATE 100 MG CAPSULE PO (08:34)
[2018-07-15] MEDS: GABAPENTIN 100 MG CAPSULE PO (08:34)
[2018-07-15] MEDS: ASPIRIN EC 81 MG TABLET PO (08:34)
--- NOTE | 2018-07-15 08:34 | P.DS_ITS ---
History of Present Illness Date Patient Seen: 07/15/18 Time Patient Seen: 08:34 Chief complaint: 357[address] Narrative: The patient has had progressively worsening left hip pain with radiographic changes consistent with arthritis. Non-operative management has failed and the patient has requested total hip replacement. The risks, benefits and alternatives to surgery were discussed with the patient prior to proceeding. Risks discussed included, but were not limited to, failure to relieve pain, leg length discrepancy, dislocation, stiffness, infection, nerve damage, deep venous thrombosis, pulmonary embolism, stroke, coma, heart attack, permanent paralysis and , as well as the potential need for eventual revision of the prosthetic. Discharge Providers Date of admission: 07/11/18 08:08 Primary care physician: Sandoval Beaulieu MD Consults: 07/11/18 08:43 Consult to Anesthesiology Routine Comment: Consulting Provider: Anesthesiologist Reason for consultation: Regional block for post operative pain control 07/11/18 14:45 Consult to Discharge Planning Routine Comment: Consult to Physical Therapy Evaluate & Treat Comment: Physician Instructions: post op LORENZO protocol Consult to Respiratory Therapy Evaluate & Treat Comment: Physician Instructions: Evaluate and treat Discharge provider: Lily Gilbert PA-C Discharge Date: 07/15/18 Summary Discharge Diagnosis: s/p left total hip arthroplasty Spinal Stenosis Osteoarthritis IBS Hyperlipidemia Migraines Gout Diverticulosis Depression COPD Asthma Hospital Course: Max was admitted for left total hip arthroplasty with Dr. Rutledge, and he consented to procedure. Hospital course was remarkable for significant muscle spasms, and orthostatic hypotension. On postop day 4. Patient was doing well and ready to go home. He is eating and voiding without difficulty or assistance. He was mobilizing with physical therapy throughout his stay. He has physical therapy scheduled outpatient. Patient was started on diazepam for severe muscle spasms, Vistaril, and gabapentin. Oxycodone will be used to manage his pain postoperatively. Patient's orthostatic hypotension resolved with fluids. ASA for DVT prophylaxis. Status at Discharge Functional status at discharge: uses cane/walker Exam Vital Signs (past 8 hours): - 07/15/18 04:00 07/15/18 07:45 Temperature 98.1 F 98.4 F Pulse Rate 77 95 H Respiratory Rate 18 12 Blood Pressure 127/77 126/78 Pulse Oximetry 96 99 Oxygen Delivery Method Room Air Oxygen Flow Rate 0 Narrative Exam Narrative: Patient is sitting at bedside chair no acute distress. He is alert and oriented x3. Calves are soft, compressible, nontender bilaterally. Dressing on left hip is CDI. Sensation intact light touch throughout bilateral lower extremities. Patient's hip exam is unremarkable. He is able to actively dorsiflex plantar flex. Patient is complaining of muscle spasms this morning but has not had his medication yet. He denies any chest pain or shortness of breath. Objective Labs Result Diagrams: 07/12/18 05:42 Discharge Plan Discharge Plan Patient Disposition: Home Discharge comment: DC home today Discharge Med Rec/Prescriptions Prescriptions: New acetaminophen 325 mg Tablet 975 mg PO TID Qty: 60 RF: 0 docusate sodium 100 mg Capsule 100 mg PO BID Qty: 60 RF: 0 gabapentin 100 mg Capsule 100 mg PO TID Qty: 60 RF: 0 diazepam 5 mg Tablet 5 mg PO Q6HR PRN (Reason: spasms) Qty: 20 RF: 0 oxycodone 5 mg Tablet 5 mg PO Q4HR Qty: 60 RF: 0 hydroxyzine pamoate 25 mg Capsule 25 mg PO Q6HR Qty: 40 RF: 0 Continue terazosin 5 mg Capsule 5 mg PO BEDTIME RF: 0 trazodone 50 mg Tablet 50 mg PO BEDTIME RF: 0 temazepam 15 mg Capsule 15 mg PO BEDTIME PRN (Reason: Sleep) RF: 0 ibuprofen 600 mg Tablet 600 mg PO BID RF: 0 zolpidem 10 mg Tablet 10 mg PO BEDTIME PRN (Reason: Sleep) RF: 0 cyclobenzaprine 5 mg Tablet 5 mg PO BID PRN (Reason: Muscle Spasm) RF: 0 Changed aspirin 81 mg Tablet,Delayed Release (Dr/Ec) 81 mg PO BID Qty: 0 RF: 0 Follow up/Referrals: Zonia Rutledge MD [Physician] - (Please follow up in 5-7 days at [facility] [place] with RYAN ) Provider Discharge Instructions Diet: Diet as Tolerated Activity: Posterior hip precautions. WBAT Cold/Heat Therapy: As needed Skin/Wound/Dressing Care Report to your healthcare provider any signs of infection, such as:: chills, fever and increased pain Dressing: Please leave in place for 10-14 days Visit Report/Discharge Packet Instructions: DI for Hip Replacement Discharge Data Primary Care Provider: Sandoval Beaulieu Attending Provider: Zonia Rutledge Admit Date/Time: 07/11/18 08:08
[2018-07-15] MEDS: TAMSULOSIN 0.4 MG CAPSULE PO (08:35)
[2018-07-15] MEDS: SODIUM CHLORIDE 0.9% FLUSH 10 ML IV (08:35)
--- NOTE | 2018-07-15 09:15 | PT.IIE ---
Current Diagnoses Unilateral post-traumatic osteoarthritis, left hip (07/11/18) Presence of unspecified artificial hip joint (07/11/18) Surgery Performed Operation Date: 07/11/18 10:30 Actual Procedures p Total Hip Arthroplasty(Left) - Zonia Rutledge MD Surgical History (Last Updated 07/04/18 @ 11:01 by Joanne Guadalupe, RN) History of ankle surgery (Acute) Hx of appendectomy (Acute) Hx of arthroscopy of right knee (Acute) Hx of hand surgery (Acute ~2017) S/P cervical spinal fusion (Acute) S/P right unicompartmental knee replacement (Acute 02/05/15) Status post tendon repair (Acute) Medical History (Last Updated 07/04/18 @ 11:18 by Joanne Guadalupe, RN) Arthritis (Acute) Asthma (Acute) Borderline hypothyroidism (Acute) COPD (chronic obstructive pulmonary disease) (Acute) Closed left radial fracture (Acute) Cocaine abuse in remission (Acute) Depression (Acute) Gout (Acute) History of ETOH abuse (Acute) Inflammatory bowel disease (Acute) PTSD (post-traumatic stress disorder) (Acute) Spinal stenosis (Acute) TIA (transient ischemic attack) (Acute ~2003) Physical Therapy Inpatient Evaluation/Re-Eval M1 PT/OT-IP Prior Functional Status Start: 07/11/18 17:20 Freq: NEEDED Status: Active Protocol: Document 07/11/18 17:21 EA (Rec: 07/11/18 17:37 EA [id number]) Medical Review Prior Functional Status Medical History Reviewed Yes Diet/Fluid Consistency Regular Communication Normal Mobility and Gait Able to ambulate 1/2 a block with the use of straight cane. Fell once in the past six months due to missed step on the curve with no severe injury Activities of Daily Living and IADL's Indep Social History Household Members spouse children Living Arrangements House Number of Floors (Floors) One Floor Number of Stairs To Enter/Railing? 3 steps to get in the main house with no rails Home Equipment Front Wheel Walker Straight Cane Raised Toilet Seat w/Armrests Employment Status Retired Additional Social History Comment Lives with his which is currently working; states son will come to replace if working. M2 PT-IP Current Condition Start: 07/11/18 17:20 Freq: NEEDED Status: Active Protocol: Document 07/15/18 09:15 [facility] (Rec: 07/15/18 10:02 [facility] [id number]) Physical Therapy Current Condition Current Condition Evaluation Date 07/11/18 Treatment Diagnosis s/p Left Total Hip Arthroplasty Onset Date 07/11/18 Precautions Posterior Hip Precautions No Hip Flexion > 90 degrees No Hip Internal Rotation No Hip Adduction Weight Bearing Status Weight Bearing Status Weight Bear as Tolerated M3 PT-IP Subjective Start: 07/11/18 17:20 Freq: NEEDED Status: Active Protocol: Document 07/15/18 09:15 [facility] (Rec: 07/15/18 10:02 [facility] [id number]) Subjective Physical Therapy Visit Type Type Treatment Note Visit Start Time 08:45 Visit Stop Time 09:15 Total Visit Minutes 30 Number of HEALTH WORKERS Visits 0 Physical Therapy Visit Comments Patient Comments Pt excited to be able to go home today, he would like to practices stairs again. He is going in through the front door, which has 3 SE and can use 1 rail on either side. Therapy Pain Assessment Pain When Pain Assessed During Mobility Pain Present Pain Present Pain Reported Location Left Hip Intensity 5 Scale Used Numeric (1 - 10) M4 PT-IP Mobility and Gait Start: 07/11/18 17:20 Freq: NEEDED Status: Active Protocol: Document 07/15/18 09:15 [facility] (Rec: 07/15/18 10:02 [facility] [id number]) PT-Bed Mobility Assessment Rolling Type of Rolling Roll to Left Level of Assist Standby Assistance Supine to Sit Supine to Sit Standby Assistance Sit to Supine Sit to Supine Standby Assistance Scooting Scooting to Edge of Bed Standby Assistance Scooting Up and Down in Bed Standby Assistance PT-Transfer Assessment Sit to and From Stand Sit to and from Stand Standby Assistance Use of Upper Extremities Equipment Transfer Assistive Device Gait Belt Front Wheeled Walker Orthotic/Prosthetic Devices or Brace: No Transfers Transfer Destination Bed Transfer Ability Level of Assist Standby Assistance Gait Assessment Gait Gait Assistance Required: Standby Assistance Distance (Feet) 200 Able to Maintain Weight Bearing Status Yes During Gait Assistive Devices Assistive Device Front Wheeled Walker Orthotic/Prosthetic Devices or Brace: No Gait Deviations General Gait Pattern Antalgic Decreased Stride Length Decreased Feet Clearance Factors Limiting Gait Function Factors Limiting Gait Function Decreased Activity Tolerance Decreased Strength Pain Poor Balance Comments Gait Comments BP 130/75 Stair Climbing Assessment Evaluation Level of Assist On Stairs Contact Guard Assistance Devices Stair Climbing Assistive Devices Right Railing Technique/Endurance Stair Climbing Direction Ascend and Descend Stair Climbing Technique Step to Step Number of Steps Climbed 3 Query Text: Stair Climbing Set # Repetitions (reps) 1 M5 PT-IP Objective Assessments Start: 07/11/18 17:20 Freq: NEEDED Status: Active Protocol: Document 07/11/18 17:21 EA (Rec: 07/11/18 17:37 EA [id number]) Orientation Orientation/Cognition Level of Alertness Alert Orientation Age Year Day of Week Place Language Function Ability No Deficits Noted Safety Awareness Understands Safety Issues Memory Description No Deficits Noted Gross Range of Motion Upper Extremity ROM Assessment Within Functional Limits Lower Extremity ROM Assessment Left Impaired Impairments N/A due to hip precautions but WFL for transfers and static position Strength Upper Extremity Strength Assessment Within Functional Limits Lower Extremity Strength Assessment Right Impaired Hip N/A but with at least 3/5 during spontaneous movement Coordination Assessment Gross Coordination Gross Coordination WNL Assessment Finger to Nose Test Normal Performance Foot Tapping Test Normal Performance Sensation Assessment Sensation Gross Sensation WNL Light Touch Intact Proprioception (Position) Intact M6 PT-IP Treatment Start: 07/11/18 17:20 Freq: NEEDED Status: Active Protocol: Document 07/15/18 09:15 [facility] (Rec: 07/15/18 10:02 [facility] [id number]) Physical Therapy Treatment Education Education Provided Precautions Other Treatments Other Treatment Performed Discussed the benefits of FWW with pt, agreeble to obtain and use vs 4WW M7 PT-IP Assessment and Plan Start: 07/11/18 17:20 Freq: NEEDED Status: Active Protocol: Document 07/15/18 09:15 [facility] (Rec: 07/15/18 10:02 [facility] [id number]) PT Summary Assessment and Plan Summary Progress Towards Goals Safe For Discharge Assessment Summary POD #4 L LORENZO with posterior hip precautions. Discussed precautions with pt and able to maintain precautions throughout mobility. He performed stairs with CGA and no cuing, step-to pattern, and gait 200 ft as well as bed mobility with SBA. Pt is cleared to d/c home when medically stable. BP 130/75, no c/o dizziness or lightheadedness during session . Goals progressed and updated as pt has extended beyond initial set of goals to be achieved in 2 days post surgery. Goals Bed Mobility Goal Independent Transfer Goal Independent Gait Goal Independent Gait Distance 150 ft Other Goals 3 stairs with unilat. rail, CGA Days to Meet Goals 5 Frequency of Treatment Frequency Of Treatment Twice a Day Treatment Plan Other Recommendations and Next Treatment continue to progress gait as Focus tolerated, review post-op exercises. Recommendations To Nursing Amount of Assist Needed 1 Person Assist Discharge Recommendations PT Discharge Recommendations Home with Assistance
== END 2018-07-15 11:20 | disposition home or self-care (01) | DRG 470 ==
PROVIDERS: Admitting Provider Orthopaedic Surgery; PCP Emergency Medicine Emergency Medical Services; Visit Provider Orthopaedic Surgery
PROC: 0SRB0JZ Replacement of Left Hip Joint with Synthetic Substitute, Open Approach (ICD-10-PCS; CPT 27130; principal; 2018-07-11 10:30)
DX: M16.12 Unilateral primary osteoarthritis, left hip (principal); E78.5 Hyperlipidemia, unspecified; F32.9 Major depressive disorder, single episode, unspecified; J44.9 Chronic obstructive pulmonary disease, unspecified; Z87.891 Personal history of nicotine dependence; M62.830 Muscle spasm of back; M54.30 Sciatica, unspecified side; I95.1 Orthostatic hypotension
CPT/HCPCS: 36415; 73502; 85014; 85018; 97110; 97116; 97161; 97530; 97535; C1776; C9290; J0171; J0690; J1100; J1170; J1885; J2250; J2405; J2704; J3010; J3370

== ENCOUNTER 2019-03-15 20:19 | Emergency (ER) | payer OTHER, MEDICAID, SELFPAY ==
[2018-07-11 16:46] VITALS: BMI 27.8
[2019-03-15 20:20] VITALS: BP 117/83; PULSE 96; RESP 20; TEMP 36.4; O2SAT 100
--- NOTE | 2019-03-15 20:53 | ED.CHESTPAIN ---
HPI - Chest Pain General Chief Complaint: Chest Pain Stated Complaint: CHEST PAIN Time Seen by Provider: 03/15/19 20:53 Source: patient Mode of arrival: ambulatory Limitations: no limitations History of Present Illness HPI narrative: The patient presents with chest pain, the pain is radiating from his thoracic spine. He has no cardiac history. He does not smoke tobacco, he has no hypertension, diabetes or hyperlipidemia. He has previously undergone cervical spine fusion 2 times. He fell about 4 months ago, injuring his thoracic spine. He has had intermittent pain in the midthoracic area since the fall. The pain is now been persistent and increased since yesterday. His dosage dyspnea. He has no lower extremity numbness or weakness. He has no incontinence. He has no prior evaluation for the back pain/injury. The patient is a former tobacco smoker, he smokes marijuana now. He has no history of hypertension, diabetes or hyperlipidemia. Related Data Home Medications Medication Instructions Recorded Confirmed cyclobenzaprine 5 mg PO BID PRN 07/04/18 07/11/18 ibuprofen 600 mg PO BID 07/04/18 07/11/18 temazepam 15 mg PO BEDTIME PRN 07/04/18 07/11/18 terazosin 5 mg PO BEDTIME 07/04/18 07/11/18 trazodone 50 mg PO BEDTIME 07/04/18 07/11/18 zolpidem 10 mg PO BEDTIME PRN 07/04/18 07/11/18 Previous Rx's Medication Instructions Recorded acetaminophen 975 mg PO TID #60 tab 07/15/18 aspirin 81 mg PO BID #0 tab 07/15/18 diazepam 5 mg PO Q6HR PRN #20 tab 07/15/18 docusate sodium 100 mg PO BID #60 cap 07/15/18 gabapentin 100 mg PO TID #60 cap 07/15/18 hydroxyzine pamoate 25 mg PO Q6HR #40 cap 07/15/18 oxycodone 5 mg PO Q4HR #60 tab 07/15/18 hydrocodone-acetaminophen [[place]] 1 tab PO Q4H PRN #20 tab 03/16/19 Allergies Allergy/AdvReac Type Severity Reaction Status Date / Time gabapentin AdvReac Intermediate CONFUSION Verified 07/12/18 03:22 Review of Systems Review of Systems ROS Unobtainable: All systems reviewed & are unremarkable except as noted in HPI and below Constitutional Denies chills, Denies fever(s), Denies lethargy and Denies weakness ENT Ears, Nose, Mouth, and Throat: Denies dizziness Comments: No ENT complaints Cardiovascular Reports as per HPI, Reports chest pain at rest, Denies syncope and Denies dyspnea Comments: Increased pain with motion. Respiratory Denies cough, Denies dyspnea and Denies wheezing Gastrointestinal Gastrointestinal: Denies abdominal pain, Denies change in bowel habits, Denies diarrhea, Denies nausea and Denies vomiting Musculoskeletal Comments: Back pain is noted in HPI. Integumentary/Breasts Denies rash and Denies sores Neurologic Denies dizziness, Denies syncope and Denies weakness Hematologic/Lymphatic Comments: No blood thinners Allergic/Immunologic Denies wheezing [facility] Medical History Arthritis (Acute) Asthma (Acute) Borderline hypothyroidism (Acute) COPD (chronic obstructive pulmonary disease) (Acute) Closed left radial fracture (Acute) Cocaine abuse in remission (Acute) Depression (Acute) Gout (Acute) History of ETOH abuse (Acute) Inflammatory bowel disease (Acute) PTSD (post-traumatic stress disorder) (Acute) Spinal stenosis (Acute) TIA (transient ischemic attack) (Acute ~2003) Surgical History History of ankle surgery (Acute) Hx of appendectomy (Acute) Hx of arthroscopy of right knee (Acute) Hx of hand surgery (Acute ~2017) S/P cervical spinal fusion (Acute) S/P right unicompartmental knee replacement (Acute 02/05/15) Status post tendon repair (Acute) Social History Smoking Status: Former smoker Social History Smoking Status: Former smoker Exam Initial Vital Signs Initial Vital Signs: Vital Signs Temperature 97.6 F 03/15/19 20:20 Pulse Rate 96 H 03/15/19 20:20 Respiratory Rate 20 03/15/19 20:20 Blood Pressure 117/83 03/15/19 20:20 Pulse Oximetry 100 03/15/19 20:20 Const General: cooperative and well developed Nutritional Appearance: well nourished Orientation: alert, awake, oriented x3 and not confused HENDE Head: normocephalic and atraumatic Ears: external ears normal Nose: external nose normal Face and sinus: face symmetric Mouth: oral mucosae normal and moist mucous membranes Throat: tonsils normal Eyes Pupils: PERRL EOM: EOM intact bilaterally Neck Neck: full ROM, supple and No JVD Lymphatic: No lymphedema Chest Chest: normal inspection of the chest, normal palpation of entire chest wall and No crepitus Resp Effort & Inspection: normal respiratory effort, able to speak in complete sentences, no respiratory distress and no use of accessory muscles Auscultation: clear to auscultation bilaterally, no rales, no rhonchi and no wheezes Cardio Rate: regular rate Rhythm: regular rhythm Heart Sounds: no click, no gallops, no murmurs and no rubs Pulses: normal peripheral pulses Back/Spine/Pelvis Thoracic/Lumbar Spine: thoracic and lumbar spine normal to inspection Skin General: no rashes or lesions noted and No petechiae Neuro General: alert, oriented x3, gait normal and no focal motor deficits Speech: speech normal Extrem General: No cyanosis and No edema Course Course Narrative: The patient improved with pain meds. Cardiovascular evaluation is negative. There is no finding of acute coronary syndrome. X-rays of the spine have been benign. Chest x-ray did reveal a pulmonary fullness. CT reveals a 6.6cm x 5.2 cm mass in the left upper lung, with probable metastatic lesion noted. Orders Ordered: ED Orders 03/15/19 20:30 Basic Metabolic Panel Stat Complete Blood Count AUTO DIFF Stat Troponin & CK Cardiac Panel Stat 03/15/19 21:00 XR chest 1V Stat XR lumbar spine 2-3V Stat 03/15/19 22:55 XR thoracic spine 3V Stat 03/15/19 23:14 CT chest w con Stat Discontinued Medications Hydrocodone Bitart/Acetaminophen (Vicodin Prepack) 1 bottle MISC SEEINSTR ONE Stop: 03/16/19 01:32 Hydromorphone HCl (Dilaudid) 1 mg IV NOW ONE Stop: 03/15/19 21:01 Last Admin: 03/15/19 21:06 Dose: 1 mg Vital Signs - 8 hr 03/15/19 20:20 03/15/19 21:23 03/15/19 22:50 Temperature 97.6 F Pulse Rate 96 H 92 H 84 Respiratory Rate 20 12 16 Blood Pressure 117/83 Blood Pressure [Left Arm] 109/74 112/81 Pulse Oximetry 100 94 94 03/16/19 00:01 03/16/19 00:45 Temperature 98.2 F Pulse Rate 97 H 93 H Respiratory Rate 13 12 Blood Pressure Blood Pressure [Left Arm] 121/79 117/82 Pulse Oximetry 93 93 MDM - Chest Pain Lab Data Result diagrams: 03/15/19 20:30 03/15/19 20:30 Lab Results 03/15/19 03/15/19 Range/Units 20:30 20:30 WBC 8.3 (4.5-11.0) X10^3/uL RBC 4.31 L (4.5-5.9) X10^6/uL Hgb 10.8 L (13.5-17.5) g/dL Hct 33.6 L (41-53) % MCV 78.0 L (80-100) fL MCH 25.0 L (26-34) PG MCHC 32.0 (30-36) % RDW 16.2 H (11.6-14.8) % Plt Count 352 (150-400) X10^3/uL Neut % (Auto) 71.2 (50-75) % Lymph % (Auto) 16.0 L (25-40) % Treasure % (Auto) 9.9 (3-14) % Eos % (Auto) 2.2 (2-4) % Baso % (Auto) 0.7 (0-2) % Neut # (Auto) 5900 (7652-4087) /uL Lymph # (Auto) 1300 (4630-6396) /uL Treasure # (Auto) 800 (0-900) /uL Eos # (Auto) 200 (0-450) /uL Baso # (Auto) 100 (0-100) /uL Sodium 139 (137-145) mmol/L Potassium 4.0 (3.4-5.1) mmol/L Chloride 103 (98-107) mmol/L Carbon Dioxide 29 (22-32) mmol/L BUN 19 (9-20) mg/dL Creatinine 0.80 (0.66-1.25) mg/dL Estimated GFR > 60.0 (>60) mL/min BUN/Creatinine Ratio 23.8 H (6-22) Glucose 100 (80-110) mg/dL Calcium 8.9 (8.4-10.2) mg/dL Total Creatine Kinase 81 (55-170) U/L CK-MB (CK-2) TNP CK-MB (CK-2) Rel Index TNP Troponin I < 0.012 (0.01-0.034) ng/mL Imaging Data Chest x-ray: Radiologist's impression: [address] [address] XRay Report Signed Patient: Max Alvarez AMR#: [id number] : 6At:[id number] Age/Sex: 63 / MDate of Service: 03/15/19 Loc: ED Accession Number: [id number] Procedure: XR chest 1V Ordering Provider: Demetrio Flynn MD PROCEDURE: XR CHEST 1V INDICATIONS: chest pain TECHNIQUE: One view of the chest was acquired. COMPARISON: [facility], CR, XR SHOULDER 2+ VIEWS LEFT, 04/09/2018, 15:45. FINDINGS: Surgical changes and devices: None. Lungs and pleura: Mild bilateral perihilar pulmonary opacities are noted. There is mild prominence of the pulmonary vasculature. Mediastinum: There is asymmetric enlargement of the superior left mediastinal silhouette. Bones and chest wall: No suspicious bony lesions. Overlying soft tissues appear unremarkable. IMPRESSION: 1. Bilateral perihilar atelectasis. 2. Asymmetric enlargement of the superior left mediastinal silhouette. This is more prominent than on prior comparison exams. This may be secondary to prominent anterior first rib degenerative change, but consider a CT of the chest if there is clinical concern for a mediastinal mass. Findings discussed with Temitope Dobbs of the [facility] at 11:11 PM on 03/15/[address] Hansen. Dictated by: Ant Hansen M.D. on 03/15/2019 at 23:05 Approved by: Ant Hansen M.D. on 03/15/2019 at 23:11 L-spine x-ray: Radiologist's impression: [address] [address] XRay Report Signed Patient: Max Alvarez AMR#: [id number] : 6At:[id number] Age/Sex: 63 / MDate of Service: 03/15/19 Loc: ED Accession Number: [id number] Procedure: XR lumbar spine 2-3V Ordering Provider: Demetrio Flynn MD PROCEDURE: XR LUMBAR SPINE 2-3V INDICATIONS: Prior cervical fusion. Recent fall. Lumbar pain. TECHNIQUE: 3 views of the lumbar spine were acquired. COMPARISON: None. FINDINGS: Bones: There is severe multilevel degenerative changes of the lumbar spine. There is a left total hip arthroplasty. No acute compression deformity of the lumbar spine is identified. Soft tissues: Prominent gas distended loop of colon projecting over the left upper quadrant of the abdomen. Left lateral soft tissue calcifications likely represent ingested intraluminal contents. Pelvic phleboliths are noted. IMPRESSION: Severe multilevel degenerative changes of the lumbar spine. No acute compression deformity of the lumbar spine is identified. Dictated by: Ant Hansen M.D. on 03/15/2019 at 23:11 Approved by: Ant Hansen M.D. on 03/15/2019 at 23:13 T spine x-ray: My impression: DJD of the thoracic spine. Cervical fusion. No acute fractures are seen. CT scan - chest: Radiologist's impression: 6.6 cm x 5.6 mm medial left upper lung mass consistent with malignancy. A probable 2 cm metastatic lesion is also noted. MDM Narrative Medical decision making narrative: There is no evidence of acute coronary syndrome. He does have a primary malignancy in his left lung. The CT has been discussed with the patient. He will be discharged with [place] for pain. He is advised to follow up with his primary care doctor and seek oncology consultation. Discharge Plan Departure Patient Disposition: Home Clinical Impression: Mass of left lung Back pain Qualifiers: Back pain location: thoracic back pain Chronicity: unspecified Back pain laterality: midline Qualified Code(s): M54.6 - Pain in thoracic spine Instructions: DI for Lung Cancer, DI for Osteoarthritis Activity Restrictions/Additional Instructions: He appeared to have lung cancer. More testing has to be done to absolutely confirm the diagnosis. Follow-up with her doctor to arrange an oncology consult. [place] every 4 hr as needed for pain. Follow-up with your primary care for ongoing pain management, return here as needed. Prescriptions: New hydrocodone-acetaminophen [[place]] 5-325 mg tablet 1 tab PO Q4H PRN (Reason: pain) Qty: 20 RF: 0 No Action terazosin 5 mg Capsule 5 mg PO BEDTIME RF: 0 trazodone 50 mg Tablet 50 mg PO BEDTIME RF: 0 temazepam 15 mg Capsule 15 mg PO BEDTIME PRN (Reason: Sleep) RF: 0 ibuprofen 600 mg Tablet 600 mg PO BID RF: 0 zolpidem 10 mg Tablet 10 mg PO BEDTIME PRN (Reason: Sleep) RF: 0 cyclobenzaprine 5 mg Tablet 5 mg PO BID PRN (Reason: Muscle Spasm) RF: 0 acetaminophen 325 mg Tablet 975 mg PO TID Qty: 60 RF: 0 docusate sodium 100 mg Capsule 100 mg PO BID Qty: 60 RF: 0 gabapentin 100 mg Capsule 100 mg PO TID Qty: 60 RF: 0 diazepam 5 mg Tablet 5 mg PO Q6HR PRN (Reason: spasms) Qty: 20 RF: 0 oxycodone 5 mg Tablet 5 mg PO Q4HR Qty: 60 RF: 0 hydroxyzine pamoate 25 mg Capsule 25 mg PO Q6HR Qty: 40 RF: 0 aspirin 81 mg Tablet,Delayed Release (Dr/Ec) 81 mg PO BID Qty: 0 RF: 0 Referrals: Sandoval Beaulieu MD [Primary Care Provider] -
--- NOTE | 2019-03-15 21:00 | DI.RAD.S_ITS ---
PROCEDURE: XR LUMBAR SPINE 2-3V INDICATIONS: Prior cervical fusion. Recent fall. Lumbar pain. TECHNIQUE: 3 views of the lumbar spine were acquired. COMPARISON: None. FINDINGS: Bones: There is severe multilevel degenerative changes of the lumbar spine. There is a left total hip arthroplasty. No acute compression deformity of the lumbar spine is identified. Soft tissues: Prominent gas distended loop of colon projecting over the left upper quadrant of the abdomen. Left lateral soft tissue calcifications likely represent ingested intraluminal contents. Pelvic phleboliths are noted. IMPRESSION: Severe multilevel degenerative changes of the lumbar spine. No acute compression deformity of the lumbar spine is identified. Dictated by: Ant Hansen M.D. on 03/15/2019 at 23:11 Approved by: Ant Hansen M.D. on 03/15/2019 at 23:13
--- NOTE | 2019-03-15 21:00 | DI.RAD.S_ITS ---
PROCEDURE: XR CHEST 1V INDICATIONS: chest pain TECHNIQUE: One view of the chest was acquired. COMPARISON: [facility], CR, XR SHOULDER 2+ VIEWS LEFT, 04/09/2018, 15:45. FINDINGS: Surgical changes and devices: None. Lungs and pleura: Mild bilateral perihilar pulmonary opacities are noted. There is mild prominence of the pulmonary vasculature. Mediastinum: There is asymmetric enlargement of the superior left mediastinal silhouette. Bones and chest wall: No suspicious bony lesions. Overlying soft tissues appear unremarkable. IMPRESSION: 1. Bilateral perihilar atelectasis. 2. Asymmetric enlargement of the superior left mediastinal silhouette. This is more prominent than on prior comparison exams. This may be secondary to prominent anterior first rib degenerative change, but consider a CT of the chest if there is clinical concern for a mediastinal mass. Findings discussed with Temitope Dobbs of the [facility] Emergency Department at 11:11 PM on 03/15/[address] Hansen. Dictated by: Ant Hansen M.D. on 03/15/2019 at 23:05 Approved by: Ant Hansen M.D. on 03/15/2019 at 23:11
[2019-03-15] MEDS: HYDROMORPHONE 1 MG INJ IV (21:06)
[2019-03-15 21:08] LABS: Add Manual Diff / Slide Review NO; Basophils Absolute Auto 100 /uL (0-100); Basophils Percent Auto 0.7 % (0-2); Eosinophils Absolute Auto 200 /uL (0-450); Eosinophils Percent Auto 2.2 % (2-4); Hematocrit 33.6 % (41-53); Hemoglobin 10.8 g/dL (13.5-17.5); Lymphocytes Absolute Auto 1300 /uL (1100-4500); Monocytes Absolute Auto 800 /uL (0-900); Monocytes Percent Auto 9.9 % (3-14); Neutrophils Absolute Auto 5900 /uL (1500-7000); Neutrophils Percent Auto 71.2 % (50-75); Platelet Count 352 X10^3/uL (150-400); Red Blood Cell Count 4.31 X10^6/uL (4.5-5.9); Red Cell Distribution Width 16.2 % (11.6-14.8); White Blood Cell Count 8.3 X10^3/uL (4.5-11.0)
[2019-03-15 21:12] LABS: BUN Creatinine Ratio 23.8 (6-22); Blood Urea Nitrogen 19 mg/dL (9-20); Calcium 8.9 mg/dL (8.4-10.2); Carbon Dioxide 29 mmol/L (22-32); Chloride 103 mmol/L (98-107); Creatine Kinase 81 U/L (55-170); Estimated Glomerular Filt Rate > 60.0 mL/min (>60); Glucose 100 mg/dL (80-110); Sodium 139 mmol/L (137-145)
[2019-03-15 21:23] VITALS: BP 109/74; PULSE 92; RESP 12; O2SAT 94
[2019-03-15 21:27] LABS: HEMOLYSIS < 15 (0-50); Troponin I < 0.012 ng/mL (0.01-0.034)
[2019-03-15 22:50] VITALS: BP 112/81; PULSE 84; RESP 16; O2SAT 94
--- NOTE | 2019-03-15 22:55 | DI.RAD.S_ITS ---
PROCEDURE: XR THORACIC SPINE 3V INDICATIONS: back pain. Prior cervical fusion TECHNIQUE: 3 views of the thoracic spine were acquired. COMPARISON: [facility], CR, XR CERVICAL SPINE 2 OR 3VW, 01/12/2016, 16:31. [facility], CR, SPINE THORACIC MIN 4VW, 12/06/2012, 10:25. [facility], CR, XR SHOULDER 2+ VIEWS LEFT, 04/09/2018, 15:45. FINDINGS: Bones: No fractures or dislocations. No suspicious bony lesions. 12 pairs of ribs are noted, and appear intact where visualized. Mild to moderate degenerative disc disease at T4-T5, T5-T6, T6-T7, T7-T8, T8-T9, T9-T10, T10-T11, T11-T12, T12-L1, L1-L2 and L2-L3. There is discectomy and anterior fusion in the cervical spine at C3-T1. There is osteopenia. Soft tissues: There is left paravertebral stripe thickening. IMPRESSION: 1. Mild to moderate degenerative disc disease in thoracic and upper lumbar spine. 2. Postsurgical changes in the cervical spine. 3. Left paratracheal soft tissue thickening. Please see the separate chest x-ray report. Dictated by: Iva Duron M.D. on 03/16/2019 at 8:48 Approved by: Iva Duron M.D. on 03/16/2019 at 8:55
--- NOTE | 2019-03-15 23:14 | DI.CT.S_ITS ---
PROCEDURE: CT CHEST W CON INDICATIONS: mediastinum abnormality on chest x-ray. TECHNIQUE: After the administration of intravenous contrast, 5 mm thick sections acquired from the pulmonary apices to the posterior costophrenic angles. 1 mm axial lung, 5 mm thick coronal and sagittal reformats and 7 mm axial MIP were acquired. For radiation dose reduction, the following was used: automated exposure control, adjustment of mA and/or kV according to patient size. COMPARISON: [facility], CR, XR THORACIC SPINE 3V, 03/15/2019, 23:08. [facility], CR, XR SHOULDER 2+ VIEWS LEFT, 04/09/2018, 15:45. [facility], CR, XR CERVICAL SPINE 2 OR 3VW, 01/12/2016, 16:31. [facility], CR, CHEST 1VW (PORTABLE), 03/15/2014, 10:41. [facility], CR, XR CHEST 1V, 03/15/2019, 21:32. FINDINGS: Image quality: Excellent. Lungs and pleura: There is a mass in the left upper lobe medially measuring 4.5 x 6.1 x 4.6 cm, suspicious for primary lung cancer. It abuts the medial border of the superior mediastinum including the left subclavian artery and the aortic arch. There is mild right basilar infiltrate or atelectasis. Trace right pleural effusion. No pneumothorax. Central and peripheral airways are patent and normal in caliber. Mediastinum: There is a 1.9 x 2.2 cm AP window lymph node suspicious for metastasis. Heart size is normal. No pericardial effusion. Thoracic aorta and central pulmonary arteries are normal in size. Esophagus is normal in caliber. No hiatal hernia. Bones and chest wall: No suspicious bony lesions. No vertebral body compression fractures. Post surgical changes in the lower cervical spine. No axillary or supraclavicular adenopathy by size criteria. Thyroid gland is normal. Abdomen: Visualized upper abdominal solid organs appear normal. Upper abdominal bowel loops are normal in caliber. IMPRESSION: 1. A 4.5 x 6.1 x 4.6 cm mass in the left upper lobe medially highly suspicious for primary lung cancer. 2. Enlarged AP window lymph node suspicious for metastasis. 3. Mild right basilar infiltrate or atelectasis. No significant discrepancy with the overnight stocker radiology preliminary report. Dictated by: Iva Duron M.D. on 03/16/2019 at 7:57 Approved by: Iva Duron M.D. on 03/16/2019 at 8:47
[2019-03-16 00:01] VITALS: BP 121/79; PULSE 97; RESP 13; O2SAT 93
[2019-03-16 00:45] VITALS: BP 117/82; PULSE 93; RESP 12; TEMP 36.8; O2SAT 93
[2019-03-16] MEDS: HYDROCODONE/ACET 5/325 PREPACK 1 BOTTLE MISC (01:48)
[2019-03-16] MEDS: HYDROMORPHONE 1 MG INJ IV (01:49)
== END 2019-03-16 01:56 | disposition home or self-care (01) ==
PROVIDERS: Emergency Provider Emergency Medicine; PCP Emergency Medicine Emergency Medical Services
DX: R91.8 Other nonspecific abnormal finding of lung field (principal); M54.6 Pain in thoracic spine; R07.9 Chest pain, unspecified; Z86.73 Personal history of transient ischemic attack (TIA), and cerebral infarction without residual deficits
CPT/HCPCS: 36591; 71045; 71260; 72072; 72100; 80048; 82550; 84484; 85025; 93005; 96374; 96376; 99283; 99285; J1170